=== PATIENT | female | born 2005 | race Caucasian/White ===

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

== ENCOUNTER 2023-12-21 13:29 | Emergency (ER) | payer OTHER, SELFPAY ==
[2023-12-21 13:39] VITALS: BP 112/80; PULSE 91; RESP 14; TEMP 37.1; O2SAT 97; BMI 29.3
--- NOTE | 2023-12-21 13:39 | ED.EAR ---
HPI - Ear Problem General Chief complaint: Ear Problems Stated complaint: diff hearing l ear swelling Time Seen by Provider: 12/21/23 15:04 Source: patient Mode of arrival: ambulatory Limitations: no limitations History of Present Illness ED Provider: melissa LEIVA Narrative: Patient is a 18-year-old female presenting to the emergency department with complaint of left ear pain and swelling despite starting antibiotic treatment for AOM yesterday. Denies fevers. Reports decreased hearing. Denies discharge or drainage from ear. Complaint: ear pain and decreased hearing Location: left ear Duration: constant Severity: severe Relieving factors: nothing Discharge from ear: no Treatment prior to arrival: other Related Data Previous Rx's ?Medication ?Instructions ?Recorded ciprofloxacin 0.3 %-dexamethasone 4 drp otic (ears) BID 7 days #7.5 12/21/23 0.1 % ear drops,suspension mL Allergies Allergy/AdvReac Type Severity Reaction Status Date / Time No Known Allergies Allergy Verified 12/21/23 13:41 [No Known Allergies*] Review of Systems Review of Systems: As per HPI. Yes all other systems are reviewed and are negative Constitutional: Constitutional: Reports as per HPI [facility] Past Medical History Medical History ADHD Depression Social History Social History Alcohol intake: current Alcohol intake frequency: holidays/special occasions only Patient Tobacco Use Status: Never used Tobacco Substance Use Type: Marijuana Advance Directives: No Advance Directives Information Provided: No Do you have a plan to hurt others: No Plan Physical Exam Vital Signs: Vital Signs: Last Vital Signs Temp 98.8 F 12/21/23 13:39 Pulse 91 12/21/23 13:39 Resp 14 12/21/23 13:39 BP 112/80 12/21/23 13:39 Pulse Ox 97 12/21/23 13:39 O2 Del Method Room Air 12/21/23 13:39 BMI result Body Mass Index 29.3 Vital signs have been reviewed and appear to be correct. Blood pressure normal. Heart rate normal. Respiratory rate normal. Temperature normal. Oxygen saturation normal. Const: General: cooperative, healthy appearing and no acute distress Orientation/consciousness: oriented to person, oriented to place, oriented to time and patient oriented x3 Limitations: no limitations HEENT: Head: Yes normocephalic and Yes atraumatic Ears: external ears normal, mastoids normal bilaterally, no periauricular adenopathy, Abnormal EAC present edema on the left and EAC tenderness on the left; no foreign body and no otic discharge and unable to visualize TM on the left General nose exam: Normal external nose present Face and sinus: Yes face symmetric Mouth: oropharynx normal and moist mucous membranes Throat: Yes uvula midline Eyes: Pupils: Equal, round and reactive pupils present Neck: Neck: Yes normal visual inspection and Yes supple Resp: Effort & Inspection: normal respiratory effort and able to speak in complete sentences Auscultation: clear to auscultation bilaterally Cardio: Rate: regular rate Rhythm: regular rhythm Heart sounds: S1 normal heart sound present and S2 normal heart sound present GI: Palpation (GI): Soft to palpation and nontender Auscultation: normoactive bowel sounds : General: Yes no CVA tenderness Back/Spine/Pelvis: Back: no CVA tenderness Skin: General skin exam: elasticity normal and turgor normal Neuro: General: oriented to person, oriented to place, oriented to time, patient oriented x3, moves all extremities, no focal motor deficits and CN's II-XI intact bilaterally Cranial nerves: Yes Equal, round and reactive pupils present Cognition (Neuro): normal cognition Extrem: General: Yes full ROM, Yes no pedal edema and Yes no calf tenderness Psych: Mental Status: mental status grossly normal Affect: normal affect Thought process: Normal thought process present Medical Decision Making Medical Decision Making MDM Narrative: Patient is a 18-year-old female presenting to the emergency department with complaint of left ear pain and swelling despite starting antibiotic treatment for AOM yesterday. On exam patient is awake, A+Ox3, VS WNL, afebrile, normal neurological exam without focal deficits, physical exam findings as above. Given reported symptoms and physical exam findings, initial differential includes otitis externa. Patient already being treated for AOM, do not suspect mastoiditis. Wick placed to left EAC. No antibiotic eardrops available from pharmacy. Prescription sent for ciprodex, and patient instructed on use, advised wick will fall out on its own once swelling improves. Follow up with PCP. Return precautions discussed. Patient verbalized understanding of and agreement with plan. Differential Diagnosis Differential Diagnoses: The differential diagnosis associated with the presentation includes As per MDM. External Record Review External record reviewed: Inpatient record, Office record and Outpatient record Prescription Management I considered prescription management with: Antibiotic Discharge Plan Discharge Clinical Impression: Otitis externa Qualifiers: Laterality: left Patient Disposition: Home, Self-Care Instructions: Otitis Externa (DC) Additional Instructions: You were evaluated in the emergency department today for ear pain. Your evaluation suggests that your pain is due to an ear infection. Please take your prescribed antibiotic drops as directed for the full course of the medication. A wick was placed in your ear today to allow the medication to reach the inside of your ear canal. This should fall out on it's own in the next few days as the swelling decreases. Please follow up with your primary care provider within two days. Return to the emergency department if you experience hearing loss, discharge from your ear, headaches, fevers, recurrent vomiting, or any other concerning symptoms. Prescriptions: New ciprofloxacin-dexamethasone 0.3-0.1 % drops,suspension 4 drp otic (ears) BID 7 Days Qty: 7.5 0RF Rx Instructions: LEFT ear Stand Alone Forms: Work/School Release Print Language: Comoran
[2023-12-21 16:04] VITALS: BP 112/80; PULSE 91; RESP 14; TEMP 37.1; O2SAT 97
== END 2023-12-21 16:04 | disposition home or self-care (01) ==
PROVIDERS: Emergency Provider Emergency Medicine Emergency Medical Services
DX: H60.92 Unspecified otitis externa, left ear (principal)
CPT/HCPCS: 99282; 99283

== ENCOUNTER 2023-12-22 04:17 | Emergency (ER) | payer OTHER, SELFPAY ==
[2023-12-22 04:24] VITALS: BP 123/93; PULSE 102; RESP 20; TEMP 36.8; O2SAT 97; BMI 29.3
--- NOTE | 2023-12-22 05:45 | PC.NURSE ---
pt called RN to room hysterically crying states she feels she cant breathe and is having an asthma attack. lung sounds cta. sats 100% on ra. educated pt to take deep breaths and pt calmed down. made aware pt reporting 10/10 ear pain.
--- NOTE | 2023-12-22 06:16 | ED_ITS ---
HPI - General Adult General Chief complaint: Ear Problems Stated complaint: left air pain Time Seen by Provider: 12/22/23 06:16 History of Present Illness ED Provider: Natanael LEIVA narrative: The patient is a 18-year-old female who has had left ear pain for several days. Two days ago she was diagnosed with otitis media and was started on cephalexin. She had worsening pain and came to the emergency room yesterday and was diagnosed with otitis externa. She was given a wick in the ear and was prescribed Ciprodex drops. The week subsequently fell out and she had worsening pain in return to the emergency room. No fevers. Related Data Previous Rx's ?Medication ?Instructions ?Recorded ciprofloxacin 0.3 %-dexamethasone 4 drp otic (ears) BID 7 days #7.5 12/21/23 0.1 % ear drops,suspension mL amoxicillin 875 mg-potassium 1 tab PO BID #20 tabs 12/22/23 clavulanate 125 mg tablet Allergies Allergy/AdvReac Type Severity Reaction Status Date / Time No Known Allergies Allergy Verified 12/22/23 20:25 [No Known Allergies*] Review of Systems Review of Systems: Yes all other systems are reviewed and are negative [facility] Past Medical History Medical History ADHD Depression Social History Social History Alcohol intake: current Alcohol intake frequency: holidays/special occasions only Patient Tobacco Use Status: Never used Tobacco Substance Use Type: Marijuana Do you have a plan to hurt others: No Plan Physical Exam ED Vital Signs: Vital Signs - 24 hr 12/22/23 04:24 12/22/23 07:09 Temperature 98.3 F 98.3 F Pulse Rate 102 H 102 H Respiratory Rate 20 20 Blood Pressure 123/93 H 123/93 H Pulse Oximetry 97 97 Oxygen Delivery Method Room Air Room Air BMI result Body Mass Index 29.3 Const Other: The patient is awake and alert with a normal mental status. She does not appear toxic. HENMT Other: The patient's left ear shows an edematous and narrowed external auditory meatus. There is also some edema to the arline. Some pain with manipulation of the pinna and the tragus. the tympanic membrane could not be visualized because of the swelling of the ear canal. The right ear and all structures were normal. no tenderness in the region of the left mastoid. She has a tenderness immediately below the ear but no palpable mass. Eyes General: appearance normal, both eyes and all related structures Neck Other: Some tenderness on the left side of the neck without palpable discrete mass or adenopathy. Good range of motion of the neck. Resp Effort & Inspection: normal respiratory effort Auscultation: clear to auscultation bilaterally Cardio Rate: regular rate Rhythm: regular rhythm Heart sounds: S1 normal heart sound present and S2 normal heart sound present Skin General skin exam: no rashes or lesions noted Neuro Other: The patient is awake, alert, with a normal mental status and normal cognition. Her demeanor is nontoxic. face is symmetrical. eye movements normal. Speech normal. Moves extremities normally. Medications Administered Discontinued Medications Generic Name Dose Route Start Last Admin Trade Name Freq PRN Reason Stop Dose Admin Amoxicillin/Clavulanate Potassium 875 mg 12/22/23 06:30 12/22/23 07:00 Amoxicillin/Potassium Clav 875 Mg Tablet PO 12/22/23 06:31 875 mg ONCE ONE Administration Ketorolac Tromethamine 30 mg 12/22/23 06:32 12/22/23 07:00 Ketorolac Tromethamine 30 Mg/Ml Vial IM 12/22/23 06:33 30 mg ONCE ONE Administration Medical Decision Making Medical Decision Making [facility] Narrative: The patient is a 18-year-old female who has had problems with her left ear for a few days. She was seen at an urgent care center and prescribed cephalexin. She was then seen here yesterday and prescribed Ciprodex drops. She has been given an ear wick but then remove the airway because she had not yet had any antibiotic drops to instill. She returns now because she has the Ciprodex drops and thinks she should have the ear wick. I was able to place a wick in the ear without difficulty. I then administered four of the Ciprodex drops in the left ear. Is my impression that the patient should probably be on Augmentin rather than cephalexin for a possible otitis media as well. The patient was therefore started on Augmentin and told to stop the cephalexin. She was given Dr. Adorno's office number for possible follow-up. Discharge Plan Discharge Clinical Impression: Acute otitis externa of left ear Patient Disposition: Home, Self-Care Instructions: Otitis Externa (ED) Additional Instructions: We replaced a wick in your left ear to help get the medicine from the ear drops into the ear. Please continue to use the ear drops, 4 drops twice a day. Next dose this evening. I think it might be better for you to be on a different oral antibiotic (antibiotic by mouth). I would recommend stopping the current cephalexin you has been taking. I have sent a prescription for an antibiotic called amoxicillin/clavulanate (Augmentin) to your pharmacy. This antibiotic should be taken 2 times a day. Next dose this evening. Use ibuprofen and acetaminophen as needed for pain. I have given you the contact number for Dr. Adorno, an Ear, Nose, and Throat doctor. Please contact his office on Saturday and see if you can get a follow up appointment in the office this week. Please also work on getting a primary care doctor. Return to the emergency room if you feel significantly worse. Prescriptions: New amoxicillin-pot clavulanate 875-125 mg tablet 1 tab PO BID Qty: 20 0RF No Action ciprofloxacin-dexamethasone 0.3-0.1 % drops,suspension 4 drp otic (ears) BID 7 Days Qty: 7.5 0RF Rx Instructions: LEFT ear Referrals: Ramon Adorno [Physician] - (Otitis media et externa) Interventions: ED Discharge Assessment Last Done: 12/22/23 07:09 Discharge Date/Time: 12/22/23 07:09 Print Language: Monegasque
[2023-12-22] MEDS: Amoxicillin/Potassium Clav 875 MG TABLET PO (07:00)
[2023-12-22] MEDS: Ketorolac Tromethamine 30 MG/ML VIAL IM (07:00)
[2023-12-22 07:09] VITALS: BP 123/93; PULSE 102; RESP 20; TEMP 36.8; O2SAT 97
== END 2023-12-22 07:09 | disposition home or self-care (01) ==
PROVIDERS: Emergency Provider Emergency Medicine
DX: H60.502 Unspecified acute noninfective otitis externa, left ear (principal); H92.02 Otalgia, left ear
CPT/HCPCS: 96372; 99283; 99284; J1885

== ENCOUNTER 2023-12-22 19:58 | Emergency (ER) | payer OTHER, SELFPAY ==
[2023-12-22 20:24] VITALS: BP 102/69; PULSE 97; RESP 18; TEMP 36.9; O2SAT 97; BMI 29.3
--- NOTE | 2023-12-22 20:37 | ED_ITS ---
HPI - Ear Problem General Chief complaint: Ear Problems Stated complaint: ear pain Source: patient Mode of arrival: ambulatory Limitations: no limitations History of Present Illness HPI Narrative: Patient is a 18-year-old female who presents emergency department for evaluation of pain to her left ear. She was seen at an urgent care recently she was prescribed cephalexin for presumed acute otitis media of the left. She continued to have symptoms which prompted re-evaluation. This is her 3rd visit to this emergency department in the past 24 hours regarding the pain to her left ear. Yesterday evening she was prescribed Ciprodex drops for otitis externa, a wick was placed into her ear and she was instructed on appropriate usage. She states that she was unable to get the drops from the pharmacy right away in the wick fell out of her ear she develop worsening pain which prompted her return earlier this morning. The ear wick was replaced, and she was advised to discontinue the oral Keflex and begin taking Augmentin for possible otitis media as well. She states that since leaving this morning she continues to have pain and she is requesting removal of the wick from her ear. She has not used any OT C analgesics such as Tylenol or ibuprofen. She is inquiring as to whether she can have surgery on the ear to clear the infection. Related Data Previous Rx's ?Medication ?Instructions ?Recorded ciprofloxacin 0.3 %-dexamethasone 4 drp otic (ears) BID 7 days #7.5 12/21/23 0.1 % ear drops,suspension mL amoxicillin 875 mg-potassium 1 tab PO BID #20 tabs 12/22/23 clavulanate 125 mg tablet ibuprofen 100 mg/5 mL oral 600 mg (30 mL) PO Q6-8H PRN fever 12/22/23 suspension or pain #473 mL Allergies Allergy/AdvReac Type Severity Reaction Status Date / Time No Known Allergies Allergy Verified 12/22/23 20:25 [No Known Allergies*] Review of Systems Review of Systems: Yes all other systems are reviewed and are negative PMFSH Past Medical History Attestation statement: The following information was validated with the patient. Source: old records reviewed Medical History Depression ADHD Social History Social History Alcohol intake: current Alcohol intake frequency: holidays/special occasions only Patient Tobacco Use Status: Never used Tobacco Substance Use Type: Marijuana Physical Exam Vital Signs: Vital Signs: Last Vital Signs Temp 98.5 F 12/22/23 20:24 Pulse 97 12/22/23 20:24 Resp 18 12/22/23 20:24 BP 102/69 12/22/23 20:24 Pulse Ox 97 12/22/23 20:24 O2 Del Method Room Air 12/22/23 20:24 BMI result Body Mass Index 29.3 Appearance: Alert.?Oriented to person, place and time. No acute distress.?Normal affect. ENT: Pharynx normal.??External left ear is edematous, appears to have opening of the external auditory canal and edema to arline, no mastoid tenderness erythema or warmth. The wick is intact to the left external ear canal Neck: Normal inspection.? Neck supple.? No adenopathy. No nuchal rigidity. Full range of motion. CVS: Heart sounds normal. Normal heart rate and rhythm.? Pulses normal.?? Respiratory: No respiratory distress.? Lung sounds clear to auscultation bilaterally?? Abdomen: Soft and non-tender. Normoactive bowel sounds. Skin: Skin warm and dry.? Normal skin color.? Neuro: Moves all extremities spontaneously. Sensation intact bilaterally. Ambulates with normal steady gait. Medical Decision Making Medical Decision Making MDM Narrative: Patient is a 18-year-old female who was undergoing treatment for acute otitis externa and presumed otitis media of the left ear as per HPI. At the time of my evaluation she has external swelling, and an ear wick in place. Patient was i nitially requesting removal, she inquires as to what next steps would be if it were removed, inquiring as to whether she may undergo surgery to clear out ear. Advised that this would not be the recommended course of treatment. Given the extent of the externa swelling, I do think that she would benefit from having a wick in place so that the antibiotic drops can be fully absorbed throughout the external canal. I discussed with her the use of the [place] and ibuprofen for analgesic. She has been mastoid tenderness to suggest acute mastoiditis. Advised continued recommendation to follow up closely outpatient with ENT / PCP. At this time no signs of systemic toxicity she is afebrile without tachycardia. No distress. I feel that she is stable for discharge home Differential Diagnosis Differential Diagnoses: The differential diagnosis associated with the presentation includes (See narrative above) External Record Review External record reviewed: Outpatient record Prescription Management I considered prescription management with: Pain Medication (See narrative above) Discharge Plan Discharge Clinical Impression: Acute otitis externa of left ear Patient Disposition: Home, Self-Care Instructions: Otitis Externa (ED) Additional Instructions: You can take ibuprofen 200 mg, 3 tablets (600mg) every 6-8 hours as needed for pain, in addition to Tylenol 500 mg, 2 tablets (1,000mg) every 4-6 hours as needed for pain, but not to exceed 3 doses daily (3,000mg).? As discussed, I recommend that you continue to take oral antibiotic as previously prescribed earlier this morning, use the ear drops as prescribed; 4 drops twice a day, and contact the Ear Nose Throat specialist 1st thing tomorrow morning. You were provided with their contact information from her visit earlier today. Prescriptions: New ibuprofen 100 mg/5 mL suspension 600 mg PO Q6-8H PRN (Reason: fever or pain) Qty: 473 0RF No Action amoxicillin-pot clavulanate 875-125 mg tablet 1 tab PO BID Qty: 20 0RF ciprofloxacin-dexamethasone 0.3-0.1 % drops,suspension 4 drp otic (ears) BID 7 Days Qty: 7.5 0RF Rx Instructions: LEFT ear Referrals: Ramon Adorno [Physician] - Print Language: Croatian
[2023-12-22 20:59] VITALS: BP 102/69; PULSE 97; RESP 18; TEMP 36.9; O2SAT 97
== END 2023-12-22 20:59 | disposition home or self-care (01) ==
PROVIDERS: Emergency Provider Emergency Medicine
DX: H60.502 Unspecified acute noninfective otitis externa, left ear (principal); H92.02 Otalgia, left ear
CPT/HCPCS: 99282

== ENCOUNTER 2023-12-26 16:47 | Emergency (ER) | payer OTHER, SELFPAY ==
--- NOTE | ~2023-12-26 | CT_ITS ---
EXAMINATION: CT mastoid without contrast. CLINICAL INDICATION: Left mastoid tenderness. COMPARISON: None. TECHNIQUE: 0.6 mm thin axial and reformatted sagittal and coronal 0.6 mm thin images of mastoid sinuses were obtained. DLP 251. This CT examination was performed using dose optimization technique as appropriate, variously including the following: Automated exposure control Adjustment of MA and/or KV according to patient size(this includes techniques or standardized protocols for targeted exams where dose is matched to indication/reason for exam; extremities or head. Use of iterative reconstruction techniques. FINDINGS: Right external auditory canal, middle ear and internal auditory canal appears unremarkable. There is soft tissue mass extending throughout the left middle ear and epitympanum suggestive of cholesteatoma. The middle ear ossicles are intact There is mucoperiosteal thickening involving left external auditory canal. The internal auditory canal is symmetrical to the right side without any bony erosive changes. Vein appears unremarkable Mild mucoperiosteal thickening seen left mastoid sinus. No lytic or sclerotic process seen. There is no soft tissue density CT/CT mastoid IMPRESSION: 1. Soft tissue mass extending throughout the left middle ear and epitympanum suggestive of cholesteatoma. 2. There is mucoperiosteal thickening involving left external auditory canal. 3. Mild mucoperiosteal thickening left mastoid sinus. 4. Normal right mastoid sinus, internal, middle and external ear. Electronically signed by: Raghav Martinez MD 12/26/2023 07:41 PM EDT
[2023-12-26 17:51] VITALS: BP 146/68; PULSE 102; RESP 16; TEMP 36.4; O2SAT 97; BMI 29.3
--- NOTE | 2023-12-26 17:53 | ED.EAR ---
HPI - Ear Problem General Chief complaint: Ear Problems Stated complaint: left ear pain Time Seen by Provider: 12/26/23 21:43 Source: patient Mode of arrival: ambulatory Limitations: no limitations History of Present Illness ED Provider: Iban Hahn PA-C HPI Narrative: 18 yold female with pmh of recurrent ear infections presents to the ED for left ear pain, loss of hearing, and ear infection. This is patient's 4th visit for issue. patient was sent to the ED to have CT scan of left ear. Patient denies any recent trauma to ear. Related Data Previous Rx's ?Medication ?Instructions ?Recorded ciprofloxacin 0.3 %-dexamethasone 4 drp otic (ears) BID 7 days #7.5 12/21/23 0.1 % ear drops,suspension mL amoxicillin 875 mg-potassium 1 tab PO BID #20 tabs 12/22/23 clavulanate 125 mg tablet ibuprofen 100 mg/5 mL oral 600 mg (30 mL) PO Q6-8H PRN fever 12/22/23 suspension or pain #473 mL ketorolac 10 mg tablet 10 mg PO Q6H PRN pain 5 days #20 12/26/23 tabs levofloxacin 750 mg tablet 750 mg PO DAILY 10 days #10 tabs 12/26/23 prednisone 20 mg tablet 40 mg (2 x 20 mg) PO DAILY 5 days 12/26/23 #10 tabs Allergies Allergy/AdvReac Type Severity Reaction Status Date / Time No Known Allergies Allergy Verified 12/26/23 17:52 [No Known Allergies*] Review of Systems Review of Systems: left ear pain Yes all other systems are reviewed and are negative PMFSH Past Medical History Medical History Depression ADHD Social History Social History Alcohol intake: current Alcohol intake frequency: holidays/special occasions only Patient Tobacco Use Status: Never used Tobacco Substance Use Type: Marijuana Advance Directives: No Advance Directives Information Provided: No Do you have a plan to hurt others: No Plan Physical Exam Vital Signs: Vital Signs: Last Vital Signs Temp 98.6 F 12/26/23 23:37 Pulse 100 12/26/23 23:37 Resp 16 12/26/23 23:37 BP 116/80 12/26/23 23:37 Pulse Ox 99 12/26/23 23:37 O2 Del Method Room Air 12/26/23 23:37 BMI result Body Mass Index 29.3 Const: General: cooperative, healthy appearing, comfortable, no acute distress, well developed, alert, awake and Physically active Orientation/consciousness: patient oriented x3 HEENT: Other: left ear Head: Yes normal to inspection, Yes No palpable skull fracture present, Yes normocephalic and Yes atraumatic Throat: Yes posterior oropharynx normal, Yes tonsils normal and Yes uvula midline Eyes: General: appearance normal, both eyes and all related structures Neck: Neck: Yes normal visual inspection, Yes full ROM, Yes no lymphadenopathy, Yes no meningeal signs, Yes trachea midline, Yes supple, No anterior neck swelling and No tender Chest: Chest palpation & inspection: normal inspection of the chest and normal palpation of entire chest wall Resp: Effort & Inspection: normal respiratory effort and able to speak in complete sentences Auscultation: clear to auscultation bilaterally Cardio: Jugular venous distension: no JVD Heart sounds: S1 normal heart sound present and S2 normal heart sound present GI: Inspection: Yes normal to inspection Palpation (GI): Soft to palpation, not firm, nontender, no guarding and not rigid : General: No CVA tenderness and Yes no CVA tenderness Back/Spine/Pelvis: Back: no CVA tenderness, No CVA tenderness and No back tenderness Skin: General skin exam: no rashes or lesions noted, elasticity normal and turgor normal Neuro: General: patient oriented x3, gait normal, tone normal, moves all extremities, Normal light touch and pain sensation, no meningeal signs, no focal motor deficits, CN's II-XI intact bilaterally and normal sensation to monofilament Extrem: General: Yes normal to inspection, Yes full ROM and Yes capillary refill normal Psych: Appearance: grossly normal, well kempt and not disheveled Course Course Course Narrative: This is a Rapid Medical Examination (RME) performed by Renee Morales PA-C in triage. Full HPI, ROS, assessment and treatment plan per primary provider in the Main ED. 18 yo female presenting for the 4th time for left ear pain, swelling, decreased hearing despite using multiple courses of antbiotics orally and topically. mat linker told her to come here because she had worsening symptoms after using the last course of drops and pain in the post auricular area. stopped amoxicillin last night because it was not working. exam with significant left EAC swelling, drainage. left sided mastoid tenderness without associated redness. Plan: CT mastoid Medications Administered Discontinued Medications Generic Name Dose Route Start Last Admin Trade Name Hill PRN Reason Stop Dose Admin Ketorolac Tromethamine 30 mg 12/26/23 22:33 12/26/23 22:51 Ketorolac Tromethamine 30 Mg/Ml Vial IM 12/26/23 22:34 30 mg ONCE ONE Administration Medical Decision Making Medical Decision Making MDM Narrative: 18-year-old female with 4th presentation of left ear infection. Patient has had weeks placed twice into left ear and she refused another week. Patient states initially she was on Keflex and was discontinued and now presently on amoxicillin. CT scan of left ear negative for mastoiditis but does shows cholesteatoma. Patient is aware of this. Patient was informed that cholesterol, increase his risk of recurrent infection and will need a surgical intervention as an outpatient. Patient informed to follow-up with ENT. Case discussed with Dr. Briggs who states patietn should stop taking amoxiccilin and should be discharged with levaquin and prednisone. Patient needs to follow-up with ENT. Patient explained worrisome signs and informed to return to the ED immediately. Differential Diagnosis Differential Diagnoses: The differential diagnosis associated with the presentation includes (Mastoiditis, cellulitis, otitis media, otitis externa) Admission/Observation Consideration of admission/observation: Escalation of care including admission/observation considered Independent Interpretation I performed an independent interpretation of an: Ultrasound Radiology Impression Discussion of test interpretation with radiology: I have reviewed the radiologist's reading. Independent Historian Clinical information obtained from an independent historian. History obtained from or confirmed by: Other (patient) External Record Review External record reviewed: Other (prior visits) Prescription Management I considered prescription management with: Pain Medication and Antibiotic Discharge Plan Discharge Clinical Impression: Otitis externa, Cholesteatoma Patient Disposition: Home, Self-Care Instructions: Otitis Externa (ED) Additional Instructions: Recommend follow-up with ENT specialist [facility], [facility], [phone]. [address] [address], [place] [address]. You can also follow-up with our own ENT. Stop taking amoxicillin. You will be prescribed Levaquin and prednisone. Return to the ED immediately for worsening pain, fever, chills, swelling, worsening redness, nausea, vomiting, or any other concerning symptoms. Do not take Motrin, naproxen, Aleve, or any other NSAIDs with ketorolac. CT/CT mastoid IMPRESSION: 1. Soft tissue mass extending throughout the left middle ear and epitympanum suggestive of cholesteatoma. 2. There is mucoperiosteal thickening involving left external auditory canal. 3. Mild mucoperiosteal thickening left mastoid sinus. 4. Normal right mastoid sinus, internal, middle and external ear. Electronically signed by: Raghav Martinez MD 12/26/2023 07:41 PM EDT RP Prescriptions: New ketorolac 10 mg tablet 10 mg PO Q6H PRN (Reason: pain) 5 Days Qty: 20 0RF Rx Instructions: Patient received Toradol 30 IM in the ED prednisone 20 mg tablet 40 mg PO DAILY 5 Days Qty: 10 0RF levofloxacin 750 mg tablet 750 mg PO DAILY 10 Days Qty: 10 0RF No Action amoxicillin-pot clavulanate 875-125 mg tablet 1 tab PO BID Qty: 20 0RF ciprofloxacin-dexamethasone 0.3-0.1 % drops,suspension 4 drp otic (ears) BID 7 Days Qty: 7.5 0RF Rx Instructions: LEFT ear ibuprofen 100 mg/5 mL suspension 600 mg PO Q6-8H PRN (Reason: fever or pain) Qty: 473 0RF Referrals: Ramon Adorno [Physician] - (Chronic ear infection, cholesteatoma) Stand Alone Forms: Work/School Release Interventions: ED Discharge Assessment Last Done: 12/26/23 23:37 Discharge Date/Time: 12/26/23 23:38 Print Language: Kyrgyz
[2023-12-26 22:23] VITALS: BP 116/80; PULSE 100; RESP 16; TEMP 37; O2SAT 99
[2023-12-26] MEDS: Ketorolac Tromethamine 30 MG/ML VIAL IM (22:51)
[2023-12-26 23:37] VITALS: BP 116/80; PULSE 100; RESP 16; TEMP 37; O2SAT 99
== END 2023-12-26 23:38 | disposition home or self-care (01) ==
PROVIDERS: Emergency Provider Emergency Medicine
DX: H60.92 Unspecified otitis externa, left ear (principal); H91.92 Unspecified hearing loss, left ear; H71.92 Unspecified cholesteatoma, left ear
CPT/HCPCS: 70481; 96372; 99283; 99284; J1885

== ENCOUNTER 2024-02-10 18:53 | Emergency (ER) | payer OTHER, SELFPAY ==
[2024-02-10 19:18] VITALS: BP 133/72; PULSE 80; RESP 16; TEMP 36.5; O2SAT 97; BMI 26.3
--- NOTE | 2024-02-10 19:25 | ED_ITS ---
HPI - General Adult General Chief complaint: Ear Problems Stated complaint: left ear pain,swelling Time Seen by Provider: 02/10/24 19:23 Source: patient Mode of arrival: ambulatory Limitations: no limitations History of Present Illness ED Provider: Hal Allen HPI narrative: 18 yold female with pmh of choleastoma and recurrent left ear infections. Presents ED now for left ear pain. Patient has follow-up with ENT as with last ear infection where ruptured and has scheduled surgery in February. Related Data Previous Rx's ?Medication ?Instructions ?Recorded ciprofloxacin 0.3 %-dexamethasone 4 drp otic (ears) BID 7 days #7.5 12/21/23 0.1 % ear drops,suspension mL amoxicillin 875 mg-potassium 1 tab PO BID #20 tabs 12/22/23 clavulanate 125 mg tablet ibuprofen 100 mg/5 mL oral 600 mg (30 mL) PO Q6-8H PRN fever 12/22/23 suspension or pain #473 mL ketorolac 10 mg tablet 10 mg PO Q6H PRN pain 5 days #20 12/26/23 tabs levofloxacin 750 mg tablet 750 mg PO DAILY 10 days #10 tabs 12/26/23 prednisone 20 mg tablet 40 mg (2 x 20 mg) PO DAILY 5 days 12/26/23 #10 tabs amoxicillin 875 mg-potassium 1 tab PO Q12H 7 days #14 tabs 02/10/24 clavulanate 125 mg tablet naproxen 500 mg tablet 500 mg PO BID PRN pain 7 days #14 02/10/24 tabs Allergies Allergy/AdvReac Type Severity Reaction Status Date / Time No Known Allergies Allergy Verified 02/10/24 19:23 [No Known Allergies*] Review of Systems Review of Systems: Left ear infection Yes all other systems are reviewed and are negative [facility] Past Medical History Medical History Depression ADHD Social History Social History Alcohol intake: current Alcohol intake frequency: holidays/special occasions only Patient Tobacco Use Status: Never used Tobacco Substance Use Type: Marijuana Advance Directives: No Advance Directives Information Provided: Yes Physical Exam ED Vital Signs: Vital Signs - 24 hr 02/10/24 19:18 02/10/24 19:41 Temperature 97.7 F 97.7 F Pulse Rate 80 80 Respiratory Rate 16 16 Blood Pressure 133/72 133/72 Pulse Oximetry 97 97 Oxygen Delivery Method Room Air Room Air BMI result Body Mass Index 26.3 Const General: cooperative, healthy appearing, comfortable, no acute distress, well developed, alert, awake and Physically active Orientation/consciousness: patient oriented x3 [facility] Head: Yes normal to inspection, Yes No palpable skull fracture present, Yes normocephalic and Yes atraumatic Ears: hearing grossly normal bilaterally, external ears normal, TM normal on the right, EAC's normal, mastoids normal, no periauricular adenopathy and TM abnormal erythematous on the left Throat: Yes posterior oropharynx normal, Yes tonsils normal and Yes uvula midline Eyes General: appearance normal, both eyes and all related structures Neck Neck: Yes normal visual inspection, Yes full ROM, Yes no lymphadenopathy, Yes no meningeal signs, Yes trachea midline, Yes supple, No anterior neck swelling and No tender Chest Chest palpation & inspection: normal inspection of the chest and normal palpation of entire chest wall Resp Effort & Inspection: normal respiratory effort and able to speak in complete sentences Auscultation: clear to auscultation bilaterally Cardio Jugular venous distension: no JVD Heart sounds: S1 normal heart sound present and S2 normal heart sound present GI Inspection: Yes normal to inspection Palpation (GI): Soft to palpation, not firm, nontender, no guarding and not rigid General: Yes no CVA tenderness Back/Spine/Pelvis Back: no CVA tenderness and No back tenderness Skin General skin exam: no rashes or lesions noted, elasticity normal and turgor normal Neuro General: patient oriented x3, gait normal, tone normal, moves all extremities, Normal light touch and pain sensation, no meningeal signs, no focal motor deficits, CN's II-XI intact bilaterally and normal sensation to monofilament Extrem General: Yes normal to inspection, Yes full ROM and Yes capillary refill normal Psych Appearance: grossly normal, well kempt and not disheveled Medical Decision Making Medical Decision Making MDM Narrative: 18-year-old female with recurrent ear infections and known cholesteoma presents to the ED for left ear pain. Patient states a month ago per cholesterol ruptured and had a ear wick placed. Patient follow-up with the ENT specialist at [facility] and they scheduled her for surgery in February. Physical exam negative for any ear canal swelling or swelling of the outer ear. Positive for tympanic membrane erythema will treat as otitis media. Patient has taken amoxicillin in the past with no allergic reaction in the past. Patient explained worrisome sign informed to follow up with primary care provider or ED immeidatley. Negative for signs of osteomyelitis or mastoiditis. Differential Diagnosis Differential Diagnoses: The differential diagnosis associated with the presentation includes (otisi externa, otitis media, abscess, cellulitits, ) Admission/Observation Consideration of admission/observation: Escalation of care including admission/observation considered Independent Historian Clinical information obtained from an independent historian. History obtained from or confirmed by: Other (patient) External Record Review External record reviewed: Other (prior visit) Prescription Management I considered prescription management with: Antibiotic Discharge Plan Discharge Clinical Impression: Otitis media Patient Disposition: Home, Self-Care Instructions: Ear Infection (ED) Additional Instructions: Return to the ED immediately for any ear swelling, redness, severe ear pain, ear discharge, decreased hearing, headache, fever, chills, nausea, vomiting, or any or any other concerning symptoms. Recommend follow-up with your ENT and primary care provider Prescriptions: New amoxicillin-pot clavulanate 875-125 mg tablet 1 tab PO Q12H 7 Days Qty: 14 0RF naproxen 500 mg tablet 500 mg PO BID PRN (Reason: pain) 7 Days Qty: 14 0RF No Action amoxicillin-pot clavulanate 875-125 mg tablet 1 tab PO BID Qty: 20 0RF ketorolac 10 mg tablet 10 mg PO Q6H PRN (Reason: pain) 5 Days Qty: 20 0RF Rx Instructions: Patient received Toradol 30 IM in the ED prednisone 20 mg tablet 40 mg PO DAILY 5 Days Qty: 10 0RF levofloxacin 750 mg tablet 750 mg PO DAILY 10 Days Qty: 10 0RF ciprofloxacin-dexamethasone 0.3-0.1 % drops,suspension 4 drp otic (ears) BID 7 Days Qty: 7.5 0RF Rx Instructions: LEFT ear ibuprofen 100 mg/5 mL suspension 600 mg PO Q6-8H PRN (Reason: fever or pain) Qty: 473 0RF Stand Alone Forms: Work/School Release Interventions: ED Discharge Assessment Last Done: 02/10/24 19:41 Discharge Date/Time: 02/10/24 19:42 Print Language: Omani
[2024-02-10 19:41] VITALS: BP 133/72; PULSE 80; RESP 16; TEMP 36.5; O2SAT 97
--- OUTSIDE RECORDS SUMMARY | 2024-02-14 13:12 | XMS_ITS | Continuity of Care Document ---
Author Organization [facility] ter Address [address] [place] [id number]- Care Team Providers Care Ciso Name Role Phone Amy Galvan MD Primary Care Physician [phone] [facility] Date(s): 12/29/23 - 12/29/[address] [address]- Encounter Diagnosis Otitis externa(Final) - 12/29/23 Cellulitis(Final) - 12/29/23 Discharge Disposition: A-D/C Home Attending Physician: Tushar Mtz DO Admitting Physician: Tushar Mtz DO Referring Physician: Not on Staff, Referring MD Allergies, Adverse Reactions, Alerts No Known Allergies Medications Adderall XR 20 mg oral capsule, extended release 1 capsule = 20 mg, By Mouth, Daily in AM, ADHD contents of capsule mixed with applesauce, 0 Refills, Maintenance, 07/19/14 9:27:55, CR Capsule Start Date: 07/19/14 Status: Ordered Augmentin 875 mg-125 mg oral tablet 1 tablet, By Mouth, Every 12 hours, for 10 days, # 20 tablet, 0 Refills, Acute 01/08/24 17:12:00 EDT, 12/29/23 17:12:00 EDT, Tablet, [facility]/pharmacy #[id number], Partial fill upon patient request if the prescription is for a schedule II opioid drug., 153, cm,... Start Date: 12/29/23 Stop Date: 01/08/24 Status: Ordered clonidine 0.1 mg oral tablet See Instructions, 1.5 tablet , By Mouth , Daily at bedtime, 0 Refills, Maintenance, 07/19/14 9:30:22 Start Date: 07/19/14 Status: Ordered fluoxetine 20 mg/5 ml oral solution 2.5 mL = 10 mg, By Mouth, Daily in AM, given in applesauce, # 120 mL, 0 Refills, Maintenance, 08/26/12 11:32:41 Start Date: 08/26/12 Status: Ordered oxyCODONE 5 mg oral tablet 5 mg, 1, tablet, By Mouth, Every 6 hours, PRN, for 3 days, # 12 tablet, Refills 0, Tot. Refills 0, Acute 01/01/24 17:13:00 EDT, for pain, 12/29/23 17:13:00 EDT, Route to Pharmacy Electronically, [facility]/pharmacy #[id number], Partial fill upon patient request if... Start Date: 12/29/23 Stop Date: 01/01/24 Status: Ordered oxyCODONE 5 mg oral tablet 5 mg, Tablet, By Mouth, Once, STAT, 12/29/23 17:21:00 EDT, Stop date 12/29/23 17:21:00 EDT Start Date: 12/29/23 Stop Date: 12/29/23 Status: Completed Problem List Condition Confirmation Course Effective Dates Status Health St atus Informant Mood disorder Confirmed 08/06/12 Active Vital Signs Most recent to oldest [Reference Range]: 1 2 3 Height 153 cm (12/29/23 2:07 PM) Weight 69.5 kg (12/29/23 2:07 PM) Oxygen Saturation [94-100 %] 98 % (12/29/23 6: PM) 96 % (12/29/23 2:07 PM) 100 % (12/29/23 2:04 PM) Pulse Rate [55-90 bpm] 88 bpm (12/29/23 6:24 PM) 107 bpm *H* (12/29/23 2:07 PM) 100 bpm *H* (12/29/23 2:04 PM) Body Mass Index [18.5-24.99 kg/m2] 29.69 kg/m2 *H* (12/29/23 2:07 PM) Blood Pressure [90-138/55-84 mm Hg] 126/76mm Hg (12/29/23 6:24 PM) 125/76mm Hg (12/29/23 2:07 PM) Respiratory Rate [16-30 br/min] 16 br/min (12/29/23 6:24 PM) 16 br/min (12/29/23 5:24 PM) 18 br/min (12/29/23 2:07 PM) Temperature [96.8-100.4 DegF] 98.4 DegF (12/29/23 6:24 PM) 98.4 DegF (12/29/23 2:07 PM) Mode of Delivery (Oxygen) Room air (12/29/23 6:24 PM) Room air (12/29/23 2:07 PM) Blood pressure sites Arm, left (12/29/23 6:24 PM) Arm, left (12/29/23 2:07 PM) Temperature Route Oral (12/29/23 6:24 PM) Oral (12/29/23 2:07 PM) Dry Weight 69.5 kg (12/29/23 2:07 PM) Weight Obtained Via Patient/family state d (12/29/23 2:07 PM) Dry Weight Obtained Via Patient lift navarro ging scale (12/29/23 2:07 PM) Hospital Progress note * Art Cespedes MD: PERFORM, SIGN, VERIFY, SIGN, MODIFY Event Display: Progress Note Hospital Authored Date: Patient: CAT TAO Age: 18 years Sex: Female : 2005 Associated Diagnoses: None Author: Art Cespedes MD ENT NOTE Hx of OE. Was seen Saturday. Wick came out. Has pain. Interested in surgery. [facility] [place] chol[place]. I discussed no immediate surgery would be done in the acute period. I suggested replacing the wick if the EAC is not patent vs leaving the wick out if the EAC is patent. I would continue drops and Levaquin. Pt has an appointment with ENT tomorrow. ER was goingto check labs and call me back if other concerns. -Art Cespedes MD * Art Cespedes MD: PERFORM Event Display: Progress Note Hospital Authored Date: I discussed the case further with Dr. Mtz. I reviewed a picture. She not only has OE but also has an infected preauricular pit with adjacent cellulitis. I discussed broadening abx coverage to cover OM and skin carlos. She will keep f/u with us tomorrow to debride her EAC which we can better do inthe office and if necessary we can perform a mini I&D of the preauricular area if needed. -Art Cespedes MD Patient Care team information Care Team Personnel Name: Cole TALAMANTES, Amy Cavazos Position: [facility] Physician - Pediatrics Member Role: PCP Address: Address: [address] [facility] [place] [address]- [place] Care Team Related Persons Name: YONATAN ESCOBAR Address: [address] [place] [address] Name: SHANEKA ANTOINE Address: [address] [place] [address]
== END 2024-02-10 19:42 | disposition home or self-care (01) ==
PROVIDERS: Emergency Provider Emergency Medicine Emergency Medical Services
DX: H66.92 Otitis media, unspecified, left ear (principal)
CPT/HCPCS: 99282; 99283

== ENCOUNTER 2024-03-28 23:54 | Emergency (ER) | payer OTHER, SELFPAY ==
--- NOTE | ~2024-03-28 | XR_ITS ---
CLINICAL HISTORY: cough 1 view chest x-ray. Comparison: None Findings: The lungs appear clear. There is no consolidation, effusion, or nodule identified. Cardiomediastinal silhouette is within normal limits. IMPRESSION: No acute cardiopulmonary abnormality. This document has been electronically signed by: Jose M Wood MD on 03/29/2024 00:54:15
[2024-03-28 23:55] VITALS: BP 107/73; PULSE 95; RESP 16; TEMP 36.8; O2SAT 97; BMI 25.8
[2024-03-29 00:40] LABS: IDNOW Serial# 58CA691E; Strep A Nucleic Acid Negative (Negative)
[2024-03-29 01:13] LABS: Influenza A PCR NEGATIVE (Negative); Influenza B PCR NEGATIVE (Negative); Resp Syncy Virus RNA Qual PCR NEGATIVE (Negative); SARS COV2 PCR INHOUSE NEGATIVE (Negative)
[2024-03-29 03:38] LABS: Color Urine Straw; Glucose Urine UA Negative (Negative); Leukocyte Esterase Urine Trace (Negative); Nitrite Urine Negative (Negative); PH 5.5 (5.0-9.0); Specific Gravity - Urine 1.015 (1.005-1.025); UMIC TRIGGER UACC YES; Urine Blood Negative (Negative); Urine Ketones Negative (Negative); Urine Protein Negative (Neg-Trace)
[2024-03-29 03:39] LABS: Appearance Urine Clear
[2024-03-29 03:40] LABS: Bacteria Urine Trace (None Seen); Hyaline Casts Urine 0-2 /LPF (0-2); RBC Urine 0-2 /HPF (0-2); WBC Urine 0-5 /HPF (0-5)
--- NOTE | 2024-03-29 04:01 | ED_ITS ---
HPI - URI/Sore Throat General Chief Complaint: Upper Respiratory Symptoms Stated Complaint: coughing, pink eye? Time Seen by Provider: 03/29/24 03:55 Source: patient Mode of arrival: ambulatory Limitations: no limitations History of Present Illness ED Provider: Dr. Lynn Mae HPI Narrative: Patient comes to the emergency room complaining of cough and sore throat and bilateral eye redness with discharge which has gradually been getting worse for about a week. Patient states that her significant other had the same symptoms, his better now but now she is starting with all the same symptoms. Patient denies shortness of breath, no chest pain. Complaining of fatigue and generalized malaise. Related Data Previous Rx's ?Medication ?Instructions ?Recorded ciprofloxacin 0.3 %-dexamethasone 4 drp otic (ears) BID 7 days #7.5 12/21/23 0.1 % ear drops,suspension mL amoxicillin 875 mg-potassium 1 tab PO BID #20 tabs 12/22/23 clavulanate 125 mg tablet ibuprofen 100 mg/5 mL oral 600 mg (30 mL) PO Q6-8H PRN fever 12/22/23 suspension or pain #473 mL ketorolac 10 mg tablet 10 mg PO Q6H PRN pain 5 days #20 12/26/23 tabs levofloxacin 750 mg tablet 750 mg PO DAILY 10 days #10 tabs 12/26/23 prednisone 20 mg tablet 40 mg (2 x 20 mg) PO DAILY 5 days 12/26/23 #10 tabs amoxicillin 875 mg-potassium 1 tab PO Q12H 7 days #14 tabs 02/10/24 clavulanate 125 mg tablet naproxen 500 mg tablet 500 mg PO BID PRN pain 7 days #14 02/10/24 tabs benzonatate 100 mg capsule 100 mg PO TID PRN cough #12 caps 03/29/24 erythromycin 5 mg/gram (0.5 %) eye 0.5 inch ophthalmic (eye) BID #3.5 03/29/24 ointment grams Allergies Allergy/AdvReac Type Severity Reaction Status Date / Time No Known Allergies Allergy Verified 03/28/24 23:57 [No Known Allergies*] PMFSH Past Medical History Medical History Depression ADHD Social History Social History Alcohol intake: current Alcohol intake frequency: holidays/special occasions only Patient Tobacco Use Status: Never used Tobacco Substance Use Type: Marijuana Advance Directives: No Do you have a plan to hurt others: No Plan Physical Exam Vital Signs: Vital Signs: Last Vital Signs Temp 98.3 F 03/28/24 23:55 Pulse 95 03/28/24 23:55 Resp 16 03/28/24 23:55 BP 107/73 03/28/24 23:55 Pulse Ox 97 03/28/24 23:55 O2 Del Method Room Air 03/28/24 23:55 BMI result Body Mass Index 25.8 Const: Other: Appearance: Alert. Oriented X3. No acute distress. Eyes: Pupils equal, round and reactive to light. Crusty bilateral as, erythematous, no surrounding cellulitis ENT: Pharynx normal. Neck: Normal inspection. Neck supple. No lymph nodes noted. No crepitus CVS: Normal heart rate and rhythm. Pulses normal. Normal S1 and S2 Respiratory: No respiratory distress. Breath sounds normal. No Wheezing. No rales Abdomen: Soft and nontender. No rigidity. No distention. Skin: Skin warm and dry. Normal skin color. Normal skin turgor. Extremities: No lower extremity edema. No Lacerations. No Rash Neuro: Oriented X 3. No motor deficit. No sensory deficit. Moving all extremities. No slurred speech. CN 2 through 12 grossly intact Psych: calm, cooperative, normal affect Medications Administered Discontinued Medications Generic Name Dose Route Start Last Admin Trade Name Freq PRN Reason Stop Dose Admin Benzonatate 100 mg 03/29/24 04:01 03/29/24 04:11 Benzonatate 100 Mg Capsule PO 03/29/24 04:02 100 mg ONCE ONE Administration Dexamethasone Sodium Phosphate 6 mg 03/29/24 04:01 03/29/24 04:11 Dexamethasone Sod Phosphate 4 Mg/Ml Vial IVPUSH 03/29/24 04:02 6 mg ONCE ONE Administration Lidocaine HCl 15 ml 03/29/24 04:01 03/29/24 04:11 Lidocaine Hcl Viscous 2 % 15 Ml Solution MUCOUS MEM 03/29/24 04:02 15 ml ONCE ONE Administration Medical Decision Making Lab Data Labs: Lab Results 03/29/24 03/29/24 Range/Units 00:24 03:22 Urine Color Straw Urine Appearance Clear Urine pH 5.5 (5.0-9.0) Ur Specific [place] 1.015 (1.005-1.025) Urine Protein Negative (Neg-Trace) mg/dL Urine Glucose (UA) Negative (Negative) mg/dL Urine Ketones Negative (Negative) mg/dL Urine Blood Negative (Negative) Urine Nitrite Negative (Negative) Ur Leukocyte Esterase Trace H (Negative) Urine RBC 0-2 (0-2) /HPF Urine WBC 0-5 (0-5) /HPF Ur Squamous Epith Cells 3-5 (0-2) /HPF Urine Bacteria Trace (None Seen) Hyaline Casts 0-2 (0-2) /LPF Influenza Type A (PCR) NEGATIVE (Negative) Influenza Type B (PCR) NEGATIVE (Negative) RSV RNA Qual (PCR) NEGATIVE (Negative) SARS-CoV-2 RNA (RT-PCR) NEGATIVE (Negative) S. pyogenes GrpA HARLEY Negative (Negative) Discharge Plan Discharge Clinical Impression: Upper respiratory infection, Bronchitis Patient Disposition: Home, Self-Care Instructions: Acute Bronchitis (ED) Additional Instructions: Please follow-up with your primary care physician tomorrow. If you have any worsening or new symptoms, please return to the emergency room or call 911 Prescriptions: New benzonatate 100 mg capsule 100 mg PO TID PRN (Reason: cough) Qty: 12 0RF erythromycin 5 mg/gram (0.5 %) ointment 0.5 inch ophthalmic (eye) BID Qty: 3.5 0RF No Action amoxicillin-pot clavulanate 875-125 mg tablet 1 tab PO BID Qty: 20 0RF ketorolac 10 mg tablet 10 mg PO Q6H PRN (Reason: pain) 5 Days Qty: 20 0RF Rx Instructions: Patient received Toradol 30 IM in the ED prednisone 20 mg tablet 40 mg PO DAILY 5 Days Qty: 10 0RF levofloxacin 750 mg tablet 750 mg PO DAILY 10 Days Qty: 10 0RF amoxicillin-pot clavulanate 875-125 mg tablet 1 tab PO Q12H 7 Days Qty: 14 0RF naproxen 500 mg tablet 500 mg PO BID PRN (Reason: pain) 7 Days Qty: 14 0RF ciprofloxacin-dexamethasone 0.3-0.1 % drops,suspension 4 drp otic (ears) BID 7 Days Qty: 7.5 0RF Rx Instructions: LEFT ear ibuprofen 100 mg/5 mL suspension 600 mg PO Q6-8H PRN (Reason: fever or pain) Qty: 473 0RF Stand Alone Forms: Work/School Release Print Language: Faroese
[2024-03-29] MEDS: Lidocaine HCl Viscous 2 % 15 ML SOLUTION MUCOUS MEM (04:11)
[2024-03-29] MEDS: dexAMETHasone sod phosphate 4 MG/ML VIAL 6 MG IVPUSH (04:11)
[2024-03-29] MEDS: Benzonatate 100 MG CAPSULE PO (04:11)
[2024-03-29 05:35] VITALS: BP 110/65; PULSE 90; RESP 14; TEMP 36.7; O2SAT 97
[2024-03-29 05:36] VITALS: BP 110/65; PULSE 90; RESP 14; TEMP 36.7; O2SAT 97
== END 2024-03-29 05:37 | disposition home or self-care (01) ==
PROVIDERS: Emergency Provider Emergency Medicine
DX: J06.9 Acute upper respiratory infection, unspecified (principal); J40 Bronchitis, not specified as acute or chronic; R05.9 Cough, unspecified; Z03.818 Encounter for observation for suspected exposure to other biological agents ruled out
CPT/HCPCS: 0241U; 71045; 81001; 87651; 96374; 99283; 99284; J1100

== ENCOUNTER → 2024-03-28 23:59 | Outpatient (BNV) | payer OTHER, SELFPAY | PROVIDERS: Visit Provider Radiology Diagnostic Radiology | DX: R05.9 Cough, unspecified (principal) | CPT/HCPCS: 71045 ==

== ENCOUNTER 2024-06-02 03:22 | Emergency (ER) | payer OTHER, SELFPAY ==
--- NOTE | ~2024-06-02 | CT_ITS ---
CLINICAL HISTORY: left flank pain, R O obstructive uropathy. Exam: CT abdomen and pelvis without intravenous contrast. Comparison: September 08, 2022. Findings: CT abdomen: Lung bases are clear. No acute bony lesions. Limbus vertebrae of the anterosuperior corner of the T12 vertebral body is evident. There is generalized edema within the left kidney. 1 mm calculus within the interpolar region of the left kidney. There is left perinephric stranding. Minor prominence of the left renal collecting system and left ureter. No stones identified within the left ureter. No right renal or ureteral calculi. No right hydronephrosis. Unenhanced liver, spleen, pancreas, gallbladder, and adrenal glands are unremarkable. Large amount of ingested contents within the stomach. No dilated small bowel. CT pelvis: No bladder calculi. Mild concentric wall thickening of the urinary bladder. No colonic wall thickening or pericolonic inflammatory stranding. No findings of appendicitis. Small amount of free fluid within the posterior cul-de-sac. No free air. Impression: Findings suggest left renal edema with minimal to mild left hydronephrosis and left hydroureter. There is a small stone within the left kidney but no left ureteral calculus identified. Therefore, this may be related to recent passage of a calculus or ascending urinary tract infection. This document has been electronically signed by: Liam Espinal MD on 06/02/2024 07:28:44
[2024-06-02 03:32] VITALS: BP 112/67; PULSE 96; RESP 17; TEMP 36.9; O2SAT 98; BMI 31.1
[2024-06-02 04:39] LABS: Basophils Absolute Auto 0.1 X10*3/uL (0.0-0.2); Basophils Percent Auto 0.5 % (0-2); Eosinophils Absolute Auto 0.2 X10*3/uL (0.0-0.4); Eosinophils Percent Auto 1.5 % (0-4); Hematocrit 38.7 % (37.0-47.0); Hemoglobin 13.4 g/dl (12.0-16.0); Imm Gran Abs Auto 0.02 X10*3/uL (0.00-0.03); Imm Gran Pct Auto 0.2 % (0.0-0.4); Lymphocytes Absolute Auto 2.5 X10*3/uL (1.2-4.9); Lymphocytes Percent Auto 22.2 % (20-40); MANUAL DIFF FLAG NO; Mean Corpuscular HGB Conc 34.6 g/dl (31.0-35.0); Mean Corpuscular Hemoglobin 29.5 pg (27.0-33.0); Mean Corpuscular Volume 85.2 fL (80.0-98.0); Mean Platelet Volume 9.9 fL (9.4-12.3); Monocytes Absolute Auto 0.6 X10*3/uL (0.1-1.2); Monocytes Percent Auto 5.6 % (2-11); Neutrophils Absolute Auto 7.9 x10*3/uL (2.0-8.3); Platelet Count 250 X10*3/uL (160-400); Red Blood Count 4.54 X10*6/uL (4.20-5.50); Red Cell Distribution Width 13.3 % (11.0-16.0); White Blood Count 11.2 X10*3/uL (4.8-10.8)
[2024-06-02 04:54] LABS: Alanine Aminotransferase 15 U/L (0-31); Albumin Level 4.4 g/dL (3.5-5.0); Alkaline Phosphatase 89 U/L (39-117); Anion Gap 10 (12-20); Aspartate Amino Transferase 16 U/L (5-31); Bilirubin Total 0.5 mg/dL (0.0-1.0); Blood Urea Nitrogen 10 mg/dL (9-16); Calcium 9.2 mg/dL (8.4-10.2); Carbon Dioxide 23 mmol/L (22-29); Chloride 110 mmol/L (96-108); Creatinine Clr Calc Pharmacy 112.8; Estimated Glomerular Filt Rate > 60; Glucose Random 87 mg/dL (60-115); Lipase 19 U/L (8-78); Potassium 3.9 mmol/L (3.3-5.1); Sodium 139 mmol/L (135-145); Total Protein 8.1 g/dL (6.5-8.0)
--- NOTE | 2024-06-02 04:55 | ED_ITS ---
HPI - Female Genitourinary General Chief complaint: Urogenital-Female Stated complaint: kidney stones Time Seen by Provider: 06/02/24 04:50 Source: patient Mode of arrival: ambulatory Limitations: no limitations History of Present Illness ED Provider: DR. Kaufman HPI Narrative: 19-year-old female came in for evaluation of left flank pain x4 days, patient had history of kidney stones and kidney infections in the past, report frequency urination, and dark/ bloody urine, no dysuria. Pain is associated with nausea and dry heaving no vomiting, no fever, no chills, no history of intra-abdominal surgery, last bowel movement was normal with no diarrhea, no sick contacts. Sexually active, declined chance of being , no vaginal discharge Or vaginal bleeding. Related Data Previous Rx's ?Medication ?Instructions ?Recorded ciprofloxacin 0.3 %-dexamethasone 4 drp otic (ears) BID 7 days #7.5 12/21/23 0.1 % ear drops,suspension mL amoxicillin 875 mg-potassium 1 tab PO BID #20 tabs 12/22/23 clavulanate 125 mg tablet ibuprofen 100 mg/5 mL oral 600 mg (30 mL) PO Q6-8H PRN fever 12/22/23 suspension or pain #473 mL ketorolac 10 mg tablet 10 mg PO Q6H PRN pain 5 days #20 12/26/23 tabs levofloxacin 750 mg tablet 750 mg PO DAILY 10 days #10 tabs 12/26/23 prednisone 20 mg tablet 40 mg (2 x 20 mg) PO DAILY 5 days 12/26/23 #10 tabs amoxicillin 875 mg-potassium 1 tab PO Q12H 7 days #14 tabs 02/10/24 clavulanate 125 mg tablet naproxen 500 mg tablet 500 mg PO BID PRN pain 7 days #14 02/10/24 tabs benzonatate 100 mg capsule 100 mg PO TID PRN cough #12 caps 03/29/24 erythromycin 5 mg/gram (0.5 %) eye 0.5 inch ophthalmic (eye) BID #3.5 03/29/24 ointment grams cefuroxime axetil 500 mg tablet 500 mg PO BID #20 tabs 06/02/24 phenazopyridine 200 mg tablet 200 mg PO TID 6 doses #6 tabs 06/02/24 (Pyridium) Allergies Allergy/AdvReac Type Severity Reaction Status Date / Time No Known Allergies Allergy Verified 06/02/24 03:38 [No Known Allergies*] Review of Systems 2 Review of Systems: All other systems are reviewed and are negative Constitutional: Reports as per HPI and Reports no additional constitutional complaints Eyes: Reports as per HPI and Reports no additional eye complaints Reports system reviewed and no additional complaints, except as documented Cardiovascular: Reports as per HPI and Reports no additional cardiovascular complaints Respiratory: Reports as per HPI and Reports no additional respiratory complaints Gastrointestinal: Reports as per HPI and Reports no additional gastrointestinal complaints Genitourinary: Reports no additional female genitourinary complaints Musculoskeletal: Reports no additional musculoskeletal complaints Skin/Breast: Reports system reviewed and no additional complaints, except as docu Psychiatric: Reports no additional psychiatric complaints Endocrine: Reports no additional endocrine complaints Hematologic/Lymphatic: Reports no additional hematologic/lymphatic complaints Allergic/Immunologic: Reports no additional allergic/immunologic complaints Reports system reviewed and no additional complaints, except as documented and Reports Abnormal speech present PMFSH Past Medical History Medical History Depression ADHD Social History Social History Alcohol intake: current Alcohol intake frequency: holidays/special occasions only Patient Tobacco Use Status: Never used Tobacco Smoked in Last 30 Days: No Use of substances other than those prescribed or required for medical reasons: No Substance Use Type: Marijuana Advance Directives: No Advance Directives Information Provided: Yes Do you have a plan to hurt others: No Plan Patient : No Physical Exam 2 Vital Signs: Vital Signs: Last Vital Signs Temp 98.5 F 06/02/24 03:32 Pulse 84 06/02/24 06:24 Resp 14 06/02/24 06:24 BP 97/53 L 06/02/24 06:24 Pulse Ox 100 06/02/24 06:24 O2 Del Method Room Air 06/02/24 06:24 BMI result Body Mass Index 31.1 Vital signs have been reviewed and appear to be correct. Blood pressure elevated. Heart rate normal. Respiratory rate normal. Temperature normal. Oxygen saturation normal. Appearance: Alert. Oriented X3. No acute distress. Head: Normal external exam. Normocephalic. Atraumatic. No Cornelius signs noted. No raccoon eyes noted Eyes: PERRLA. EOMI. Conjunctiva and sclera normal. Eyelids normal. ENT: TM's Normal. Pharynx normal. Uvula midline. Moist mucous membranes. No trismus noted. No drooling noted. No muffled voice noted. Neck: Normal inspection. Neck supple. FROM. No adenopathy. Thyroid Normal. No meningeal signs. No neck mass noted. CVS: Normal heart rate and rhythm. Heart sound normal. No murmurs noted. Pulses normal throughout. Respiratory: No respiratory distress. Painless inspiration. Breath sounds normal. No wheezes/rales/rhonchi noted. Chest nontender. No accessory muscle usage noted or decreased air movement noted. Abdomen: Soft and nontender. Bowel sounds normal in all 4 quadrants. No distention noted. No organomegaly noted. No visible injury noted. Back: Left CVA tenderness. Full range of motion noted. Skin: Skin warm and dry. Normal skin color. Normal skin turgor. No rashes/lesions/lacerations noted. Extremities: No lower extremity edema. Extremities exhibit normal range of motion. Extremities nontender. Neuro: Oriented X 3. Cranial nerve exam: II-XII are grossly intact No motor deficit. No sensory deficit. Reflexes normal. Course Reevaluation(s) Reevaluation #1: left pyelonephritis. CT abdomen and pelvis to be checked by Dr. Baig. Patient feels much better, no nausea, no vomiting, with improvement of the left flank pain. Otherwise will be discharged on Ceftin. Time: 06:54 Medications Administered Discontinued Medications Generic Name Dose Route Start Last Admin Trade Name Freq PRN Reason Stop Dose Admin Ceftriaxone Sodium 1 gm 06/02/24 05:44 06/02/24 05:58 Ceftriaxone Sodium 1 Gm Vial IVPUSH 06/02/24 05:45 1 gm ONCE ONE Administration Sodium Chloride 1,000 mls @ 999 mls/hr 06/02/24 04:54 06/02/24 05:55 Ns IV 06/02/24 05:54 999 mls/hr .Q1H1M ONE Administration Ketorolac Tromethamine 15 mg 06/02/24 04:54 06/02/24 05:58 Ketorolac Tromethamine 15 Mg/Ml Vial IVPUSH 06/02/24 04:55 15 mg ONCE ONE Administration Medical Decision Making Differential Diagnosis Differential Diagnoses: The differential diagnosis associated with the presentation includes ( left ureteric stone, left pyelonephritis, UTI, colitis, diverticulitis, , leukocytosis, severe anemia, electrolyte derangement.) Admission/Observation Consideration of admission/observation: Escalation of care including admission/observation considered Lab Data MDM Lab Attestation statement: I reviewed the patient's lab results. 06/02/24 04:34 06/02/24 04:34 Labs: Lab Results 06/02/24 06/02/24 Range/Units 04:34 04:50 WBC 11.2 H (4.8-10.8) X10*3/uL RBC 4.54 (4.20-5.50) X10*6/uL Hgb 13.4 (12.0-16.0) g/dl Hct 38.7 (37.0-47.0) % MCV 85.2 (80.0-98.0) fL MCH 29.5 (27.0-33.0) pg MCHC 34.6 (31.0-35.0) g/dl RDW 13.3 (11.0-16.0) % Plt Count 250 (160-400) X10*3/uL MPV 9.9 (9.4-12.3) fL Immature Gran % (Auto) 0.2 (0.0-0.4) % Neut % (Auto) 70.0 (45-73) % Lymph % (Auto) 22.2 (20-40) % Charles % (Auto) 5.6 (2-11) % Eos % (Auto) 1.5 (0-4) % Baso % (Auto) 0.5 (0-2) % Lymph # (Auto) 2.5 (1.2-4.9) X10*3/uL Charles # (Auto) 0.6 (0.1-1.2) X10*3/uL Eos # (Auto) 0.2 (0.0-0.4) X10*3/uL Baso # (Auto) 0.1 (0.0-0.2) X10*3/uL Abs Immat Gran (auto) 0.02 (0.00-0.03) X10*3/uL Absolute Neuts (auto) 7.9 (2.0-8.3) x10*3/uL Absolute Nucleated RBC 0.000 (0.0-0.012) X10*3/uL Nucleated RBC % (auto) 0.0 (0.0-0.2) /100WBC Sodium 139 (135-145) mmol/L Potassium 3.9 (3.3-5.1) mmol/L Chloride 110 H (96-108) mmol/L Carbon Dioxide 23 (22-29) mmol/L Anion Gap 10 L (12-20) BUN 10 (9-16) mg/dL Creatinine 0.70 (0.5-1.4) mg/dL Estim Creat Clear Calc 112.8 Estimated GFR > 60 Random Glucose 87 (60-115) mg/dL Calcium 9.2 (8.4-10.2) mg/dL Total Bilirubin 0.5 (0.0-1.0) mg/dL AST 16 (5-31) U/L ALT 15 (0-31) U/L Alkaline Phosphatase 89 (39-117) U/L Total Protein 8.1 H (6.5-8.0) g/dL Albumin 4.4 (3.5-5.0) g/dL Lipase 19 (8-78) U/L Urine Color Yellow Urine Appearance Cloudy Urine pH 6.5 (5.0-9.0) Ur Specific [place] 1.015 (1.005-1.025) Urine Protein 30 (1+) H (Neg-Trace) mg/dL Urine Glucose (UA) Negative (Negative) mg/dL Urine Ketones Negative (Negative) mg/dL Urine Blood Trace H (Negative) Urine Nitrite Negative (Negative) Ur Leukocyte Esterase Large (3+) H (Negative) Urine RBC 6-10 H (0-2) /HPF Urine WBC >50 H (0-5) /HPF Ur Squamous Epith Cells 6-10 (0-2) /HPF Urine Bacteria 1+ (None Seen) Hyaline Casts 0-2 (0-2) /LPF Urine Test NEGATIVE (NEGATIVE) Independent Interpretation I performed an independent interpretation of an: CT Scan Discharge Plan Discharge Clinical Impression: Pyelonephritis Patient Disposition: Still a Patient Instructions: Kidney Infection (ED) Prescriptions: New cefuroxime axetil 500 mg tablet 500 mg PO BID Qty: 20 0RF phenazopyridine [Pyridium] 200 mg tablet 200 mg PO TID Qty: 6 0RF No Action amoxicillin-pot clavulanate 875-125 mg tablet 1 tab PO BID Qty: 20 0RF ketorolac 10 mg tablet 10 mg PO Q6H PRN (Reason: pain) 5 Days Qty: 20 0RF Rx Instructions: Patient received Toradol 30 IM in the ED prednisone 20 mg tablet 40 mg PO DAILY 5 Days Qty: 10 0RF levofloxacin 750 mg tablet 750 mg PO DAILY 10 Days Qty: 10 0RF amoxicillin-pot clavulanate 875-125 mg tablet 1 tab PO Q12H 7 Days Qty: 14 0RF naproxen 500 mg tablet 500 mg PO BID PRN (Reason: pain) 7 Days Qty: 14 0RF benzonatate 100 mg capsule 100 mg PO TID PRN (Reason: cough) Qty: 12 0RF erythromycin 5 mg/gram (0.5 %) ointment 0.5 inch ophthalmic (eye) BID Qty: 3.5 0RF ciprofloxacin-dexamethasone 0.3-0.1 % drops,suspension 4 drp otic (ears) BID 7 Days Qty: 7.5 0RF Rx Instructions: LEFT ear ibuprofen 100 mg/5 mL suspension 600 mg PO Q6-8H PRN (Reason: fever or pain) Qty: 473 0RF Print Language: Polish
[2024-06-02 04:56] LABS: Appearance Urine Cloudy; Color Urine Yellow; Glucose Urine UA Negative (Negative); Leukocyte Esterase Urine Large (3+) (Negative); Nitrite Urine Negative (Negative); PH 6.5 (5.0-9.0); Specific Gravity - Urine 1.015 (1.005-1.025); UMIC TRIGGER UACC YES; Urine Blood Trace (Negative); Urine Ketones Negative (Negative); Urine Protein 30 (1+) mg/dL (Neg-Trace)
[2024-06-02 04:58] LABS: UPreg QC Valid YES; Urine Pregnancy NEGATIVE (NEGATIVE)
[2024-06-02 05:01] LABS: Bacteria Urine 1+ (None Seen); Hyaline Casts Urine 0-2 /LPF (0-2); UACC Culture Trigger YES; WBC Urine >50 /HPF (0-5)
--- OUTSIDE RECORDS SUMMARY | 2024-06-02 05:46 | XMS_ITS | Encounter Summary ---
Author Organization [facility] Address [address] [place] [phone] Phone Care Team Providers Care Golf Course Mechanic Name Role Phone Amy Galvan MD Primary Care Provider [phone] Encounter Details Date Type Department Care Team (Late st Contact Info) Description 08/05/2012 Documentation [facility] [place] Family Medicine [address] [place] [address] Family Medicine, Physician [facility] [place] [id number] Social History Tobacco Use Types Packs/Day Years Used Date Smoking Tobacco: Never Assessed Comments Unknown Sex and Gender Information Value Date Recorded Sex Assigned at Female 12/25/2019 7:04 PM EDT Legal Sex Female 5:01 PM EDT Gender Identity Female 12/25/2019 7:04 PM EDT Sexual Orientation Bisexual 12/25/2019 7: 04 PM EDT documented as of this encounter Plan of Treatment Not on file documented as of this encounter Visit Diagnoses Not on filedocumented in this encounter Care Teams Golf Course Mechanic Relationship Specialty Start Date End Date Amy Galvan MD [address] [place] [id number] PCP - General Pediatrics 12/11/22 03/31/24 documented as of this encounter
--- OUTSIDE RECORDS SUMMARY | 2024-06-02 05:46 | XMS_ITS | Encounter Summary ---
Author Organization [facility] Address [address] [place] [address] Phone Care Team Providers Care Armored Cable Machine Operator Name Role Phone Amy Galvan MD Primary Care Provider [phone] Encounter Details Date Type Department Care Team (Late st Contact Info) Description 09/14/2016 Documentation [facility] [place] Medicine [address] [place], [place] [phone] Family Medicine, Physician [facility] [place], [place] [phone] Social History Tobacco Use Types Packs/Day Years Used Date Smoking Tobacco: Never Comments:Never smoker Comments Unknown Sex and Gender Information Value [...] on filedocumented in this encounter Care Teams Armored Cable Machine Operator Relationship Specialty Start Date End Date Amy Galvan MD [address] [place] [id number] PCP - General Pediatrics 12/11/22 03/31/24 documented as of this encounter
--- OUTSIDE RECORDS SUMMARY | 2024-06-02 05:46 | XMS_ITS | Encounter Summary ---
Author Organization [facility] Address [address] [place] [phone] Phone Care Team Providers Care Fondant Machine Operator Name Role Phone Aym Galvan MD Primary Care Provider [phone] Encounter Details Date Type Department Care Team (Late st Contact Info) Description 06/19/2016 Documentation [facility] [place] Family Medicine [address] [place] [address] Family Medicine, Physician [facility] [place], [place] [phone] Social History Tobacco Use Types Packs/Day Years [...] on filedocumented in this encounter Care Teams Fondant Machine Operator Relationship Specialty Start Date End Date Amy Galvan MD [address] [place] [id number] PCP - General Pediatrics 12/11/22 03/31/24 documented as of this encounter
--- OUTSIDE RECORDS SUMMARY | 2024-06-02 05:46 | XMS_ITS | Encounter Summary ---
Author Organization [facility] Address [address] [place] [address] Phone Care Team Providers Care Dental Insurance Biller Name Role Phone Amy Galvan MD Primary Care Provider [phone] Encounter Details Date Type Department Care Team (Late st Contact Info) Description 06/14/2011 Documentation [facility] [place] Family Medicine [address] [place] [address] Family Medicine, Physician [facility] [place], [place] [phone] Social History Tobacco Use Types Packs/Day Years [...] on filedocumented in this encounter Care Teams Dental Insurance Biller Relationship Specialty Start Date End Date Amy Galvan MD [address] [place] [id number] PCP - General Pediatrics 12/11/22 03/31/24 documented as of this encounter
--- OUTSIDE RECORDS SUMMARY | 2024-06-02 05:46 | XMS_ITS | Encounter Summary ---
Author Organization [facility] Address [address] [place] [address] Phone Care Team Providers Care Tree Shear Operator Name Role Phone Amy Galvan MD Primary Care Provider [phone] Reason for Visit * Reason Comments Med Refill Encounter Details Date Type Department Care Team (Late st Contact Info) Description 12/08/2022 Refill [facility] [place] [address] [place] [address] Amy Galvan MD [address] [place] [address] Encounter for initial prescription of injectable contraceptive Social History Tobacco Use Types Packs/Day Years Used Date Smoking Tobacco: Never Smokeless Tobacco: Never Comments:Never smoker Alcohol Use Standard Drinks/Week Comments No 0 (1 standard drink = 0.6 oz pur e alcohol) Hunger/Food Answer Date Recorded In the last 12 months, did y ou or your family ever eat less than you felt you should because there wasn't enough money for food? No 02/23/2021 Stable Housing Answer Date Recorded Are you worried that in the next 2 months you may not have stable housing? No 02/23/2021 Transportation Concerns Answer Date Rec orded In the last 12 months, have you or your family ever had to go without healthcare because you didn't have a way to get there? No 02/23/2021 Hazards in Home Answer Date Recorded Think about the place you li ve. Do you have problems with any of the following? Pests (mice or roaches), mold, no/not working smoke detectors, water leaks, no window guards. No 2020 Financing Utilities Answer Date Recorde d In the last 12 months, has t he electric, gas, oil, or water company threatened to shut off your services in your home? No 02/23/2021 Safety at Home Answer Date Recorded Are you or your family worried about feeling saf e in your home? No 02/23/2021 Outside Support Answer Date Recorded Do you feel that you need mo re support from other people or programs to help you care for yourself or your family? No 02/23/2021 Understanding Health Concerns Answer Da te Recorded Do you need help understandi ng your or your child's healthcare needs (diagnosis, medications, plan, etc.)? No 02/23/2021 Financing Health Concerns Answer Date R ecorded In the last 12 months, was t here a time when your child needed to see a doctor or get medications or supplies but could not because of cost? No 02/23/2021 Missing School or Work Answer Date Devyn rded Did you or your child miss s chool or work because of a health problem that could have been avoided? No 02/23/2021 Comments No Sex and Gender Information Value Date Recorded Sex Assigned at Female 12/25/2019 7:04 PM EDT Legal Sex Female 5:01 PM EDT Gender Identity Female 12/25/2019 7:04 PM EDT Sexual Orientation Bisexual 12/25/2019 7: 04 PM EDT documented as of this encounter Miscellaneous Notes * Telephone Encounter - Robert Leal MD - 12/11/2022 1:09 PM EDT Please send to dr. Galvan, I have not seen her in years * Telephone Encounter - Tori Dooley RN - 12/10/2022 10:30 AM EDT Pharm requesting med refill of medroxyprogesterone injection. Pt has upcoming appointment scheduledfor 12/17/22. documented in this encounter Plan of Treatment Not on file documented as of this encounter Visit Diagnoses Diagnosis Encounter for initial prescription of injectable contraceptive documented in this encounter Care Teams Tree Shear Operator Relationship Specialty Start Date End Date Amy Galvan MD [address] [place] [address] PCP - General Pediatrics 12/11/22 03/31/24 documented as of this encounter
--- OUTSIDE RECORDS SUMMARY | 2024-06-02 05:46 | XMS_ITS | Encounter Summary ---
Author Organization [facility] Address [address] [place] [address] Phone Care Team Providers Care Cost Estimator Name Role Phone Amy Galvan MD Primary Care Provider [phone] Encounter Details Date Type Department Care Team (Late st Contact Info) Description 06/19/2016 Documentation [facility] [place] [address] [place] [address] Family Medicine, Physician [facility] [place] [id number] Social History Tobacco Use Types Packs/Day Years [...] on filedocumented in this encounter Care Teams Cost Estimator Relationship Specialty Start Date End Date Amy Galvan MD [address] [place] [address] PCP - General Pediatrics 12/11/22 03/31/24 documented as of this encounter
--- OUTSIDE RECORDS SUMMARY | 2024-06-02 05:46 | XMS_ITS | Encounter Summary ---
Author Organization [facility] Address [address] [place] [address] Phone Care Team Providers Care Developer Designer Name Role Phone Aym Galvan MD Primary Care Provider [phone] Encounter Details Date Type Department Care Team (Late st Contact Info) Description 06/19/2016 Documentation [facility] Family Medicine [address] [place] [address] Family Medicine, Physician [facility] [place], [place] [phone] Social History Tobacco Use Types Packs/Day Years [...] on filedocumented in this encounter Care Teams Developer Designer Relationship Specialty Start Date End Date Amy Galvan MD [address] [place] [address] PCP - General Pediatrics 12/11/22 03/31/24 documented as of this encounter
--- OUTSIDE RECORDS SUMMARY | 2024-06-02 05:46 | XMS_ITS | Encounter Summary ---
Author Organization [facility] Address [address] [place] [address] Phone Care Team Providers Care Coroner Technician Name Role Phone Amy Galvan MD Primary Care Provider [phone] Encounter Details Date Type Department Care Team (Late st Contact Info) Description 09/14/2016 Documentation [facility] [place] Family Medicine [address] [place], [place] [id number] Family Medicine, Physician [facility] [place] [phone] Social History Tobacco Use Types Packs/Day Years [...] on filedocumented in this encounter Care Teams Coroner Technician Relationship Specialty Start Date End Date Amy Galvan MD [address] [place] [address] PCP - General Pediatrics 12/11/22 03/31/24 documented as of this encounter
--- OUTSIDE RECORDS SUMMARY | 2024-06-02 05:46 | XMS_ITS | Encounter Summary ---
Author Organization [facility] Address [address] [place] [address] Phone Care Team Providers Care Professional Healthcare Representative Name Role Phone Amy Galvan MD Primary Care Provider [phone] Encounter Details Date Type Department Care Team (Late st Contact Info) Description 09/14/2016 Documentation [facility] [place] [address] [place], [place] [phone] Family Medicine, Physician [facility] [place], [place] [phone] Social History Tobacco Use Types Packs/Day Years [...] on filedocumented in this encounter Care Teams Professional Healthcare Representative Relationship Specialty Start Date End Date Amy Galvan MD [address] [place] [address] PCP - General Pediatrics 12/11/22 03/31/24 documented as of this encounter
--- OUTSIDE RECORDS SUMMARY | 2024-06-02 05:46 | XMS_ITS | Encounter Summary ---
Author Organization [facility] Address [address] [place] [address] Phone Care Team Providers Care Career Transition Specialist Name Role Phone Amy Galvan MD Primary Care Provider [phone] Encounter Details Date Type Department Care Team (Late st Contact Info) Description 09/14/2016 [place] [facility] [place] [address] [place], [place] [phone] Family Medicine, Physician [facility] [place], [place] [phone] Social History Tobacco Use Types Packs/Day Years [...] on filedocumented in this encounter Care Teams Career Transition Specialist Relationship Specialty Start Date End Date Amy Galvan MD [address] [place] [address] PCP - General Pediatrics 12/11/22 03/31/24 documented as of this encounter
--- OUTSIDE RECORDS SUMMARY | 2024-06-02 05:46 | XMS_ITS | Encounter Summary ---
Author Organization [facility] Address [address] [place] [address] Phone Care Team Providers Care Shrink Pit Supervisor Name Role Phone Amy Galvan MD Primary Care Provider [phone] Encounter Details Date Type Department Care Team (Late st Contact Info) Description 06/19/2016 Documentation [facility] [place] [address] [place] [address] Family Medicine, Physician [facility] [place], [place] [phone] Social History Tobacco Use Types Packs/Day Years [...] on filedocumented in this encounter Care Teams Shrink Pit Supervisor Relationship Specialty Start Date End Date Amy Galvan MD [address] [place] [address] PCP - General Pediatrics 12/11/22 03/31/24 documented as of this encounter
--- OUTSIDE RECORDS SUMMARY | 2024-06-02 05:46 | XMS_ITS | Encounter Summary ---
Author Organization [facility] Address [address] [place] [address] Phone Care Team Providers Care Vp Hr Diversity Name Role Phone Amy Galvan MD Primary Care Provider [phone] Encounter Details Date Type Department Care Team (Late st Contact Info) Description 06/19/2016 [place] [facility] [place] [address] [place] [address] Family Medicine, Physician [facility] [place] [phone] Social History Tobacco Use Types Packs/Day Years [...] on filedocumented in this encounter Care Teams Vp Hr Diversity Relationship Specialty Start Date End Date Amy Galvan MD [address] [place] [address] PCP - General Pediatrics 12/11/22 03/31/24 documented as of this encounter
--- OUTSIDE RECORDS SUMMARY | 2024-06-02 05:46 | XMS_ITS | Encounter Summary ---
Author Organization [facility] Address [address] [place] [address] Phone Care Team Providers Care Language Arts Teacher Name Role Phone Amy Galvan MD Primary Care Provider [phone] Reason for Visit * Reason Onset Date Comments Med Refill 08/16/2023 Encounter Details Date Type Department Care Team (Late st Contact Info) Description 08/16/2023 Refill [facility] [address] [place] [address] Amy Galvan MD [address] [place] [address] Encounter for initial prescription of injectable contraceptive [...] encounter Miscellaneous Notes * Telephone Encounter - Justine Tiwari LPN - 08/17/2023 10:00 AM EDT Prescription sent on 08/08/23 with 3 refills documented in this encounter Plan of Treatment Not on file documented as of this encounter Visit Diagnoses Diagnosis Encounter for initial prescription of injectable contraceptive documented in this encounter Care Teams Language Arts Teacher Relationship Specialty Start Date End Date Amy Galvan MD [address] [place] [address] PCP - General Pediatrics 12/11/22 03/31/24 documented as of this encounter
--- OUTSIDE RECORDS SUMMARY | 2024-06-02 05:46 | XMS_ITS | Data Portability ---
Author Organization [facility] Address [address] [place] [address] Assessment No assessment recorded. Plan of Treatment Reminders Order Date Submit Date Provider Last Modified By Organization Details Last Modified Time Details Appointments None recorded. Lab rapid strep group A, throat 2022 023 [email or web address] [facility], [address] [place] [address], [place], [address], 18:04:25 streptococc us group A, culture, throat 2022 023 [place] [facility] ([facility], [address] [place] [address], [place], [address], 16:06:55 Referral None recorded. Procedures None recorded. Surgeries None recorded. Imaging None recorded. Medication Orders dexamethaso ne sodium phosphate 10 mg/mL injection solution 2022 023 [email or web address] Not available 18:15:55 amoxicillin 400 mg/5 mL oral suspension 2022 023 [id number], [address] [facility] , [place], [address], 18:09:54 Patient TargetsNo targets recorded. Patient InstructionsNo instructions recorded. Reason for Referral None Reported. Results Created Date Observation Date Name Description Value Unit Range Abnormal Flag Note LastModifiedBy Organization Detail LastModifiedTime 05/09/19 23 05/11/2022 BETA STREP GP A CULTU RE beta strep gp A culture COMMEN T abnormal Beta- hemol ytic colon ies, not group A Strep tococ cus isola papo. Refer ence Range : Negat shalonda Penic illin and ampic illin are drugs of choi e for treat ment of beta- hemol ytic strep tococ eun infec tions . Susce ptibi lity testi ng of penic illin s and other beta- lacta m agent s appro lani by the FDA for treat ment of beta- hemol ytic strep tococ eun infec tions need not be perfo rmed routi rommel becau se nonsu scept ible isola tiffany are extre corwin rare in any beta- hemol ytic strep tococ cus and have not been repor papo for Strep tococ cus pyoge cheng (grou p A). (CLSI ) Not Available [facility] ([facility]) [address] [facility], [place], [address], 05/11/2022 16:06:55 05/09/19 23 05/09/2022 rapid strep group A, throa t Unknown Analyte Normal = Negati ve Not Available [address], [address], 05/09/2022 16:50:04 05/09/1905/09/2022 rapid strep group A, throa t Unknown Analyte negati ve Not Available [address] [place] [address], [address], 05/09/2022 16:50:04 Result Notes None recorded. Problems No Known Problems Medical Equipment None Reported. Allergies No known drug allergies Medications Name Sig Start Date Stop Date Status Note LastModified by Organization Details LastModified Time amoxicillin 400 mg/5 mL oral suspension Take 6 mL twice a day by oral route for 10 days. 2022 active Not Available Not Available Not Avai lable dexamethasone sodium phosphate 10 mg/mL injection solution Take 10 mg by injection route. 2022 active Not Available Not Available Not Avai lable Macrobid active Not Available Not Avai lable Not Available Vitals Date Recorded Body height Body mass index (BMI) Body mass index (BMI) Percentile per age and sex Body weight Pain severity - 0-10 verbal numeric rating [Score] - Reported Oxygen saturation Oxygen saturation in Arterial blood by Pulse oximetry Heart rate Respiratory rate Body temperature Systolic blood pressure Diastolic blood pressure Provider Name and Address Organization Details Last Updated DateTime 3 149.86 cm 25.9 kg/m2 84 % 82137.8 2 g 8 97 % 97 % 90 /min 16 /min 98.6 [degF] 127 mm[Hg] 81 mm[Hg] [facility] 16:56:19 Social History Question Answer Notes LastModified by Organizat ion Details LastModified Time Tobacco Smoking Status Current Some Day Smoker Wraps marijuana in tobacco leaf [facility] 05/09/2022 16:49:36 What Is Your Level Of Alcohol Consumption? Occasional [email or web address] Information not available 05/09/2022 Which Illicit Or Recreational Drugs Have You Used? Marijuana [email or web address] Information not available 05/09/2022 Do You Or Have You Ever Used E-cigarettes Or Vape? Current User Of Electronic Cigarettes [email or web address] Information not available 05/09/2022 Do You Use Any Illicit Or Recreational Drugs? Yes [email or web address] Information not available 05/09/2022 Have You Recently Traveled Abroad? No Information not available 05/09/2022 Do You Or Have You Ever Used Any Other Forms Of Tobacco Or Nicotine? Yes [email or web address] Information not available 05/09/2022 Sex: Unknown Functional Status None recorded. Mental Status None recorded. Family History Relationship Description Onset Age of this Age Resolved Age Notes LastModified by Organization Details LastModified Time Father No current problems or disability [email or web address] Not available 05/09 16:48:49 Mother No current problems or disability [email or web address] Not available 05/09 16:48:49 Medical History No medical history recorded. Gynecological HistoryNo gynecological history recorded. Obstetrics History GPAL:G 0 P 0 0 0 0 Past Encounters Encounter ID Performer Location Encounter Start Date Encounter Closed Date Diagnosis/Indication Diagnosis SNOMED-CT Code Diagnosis ICD10 Code Diagnosis Note [id number] [address] [place] [address] 05/08/2020 16:30:56 05/08/2020 17:11:00 [id number] WALT CANO MD [address] [place] [address] 05/09/2022 15:56:48 05/09/2022 18:12:52 Sore throat 090494382 J02.9 Acute tonsillitis 275124 08 J03.90 may take ibuprofen as directed on package for the appropriat e age range.Sore throatClea r liquids for comfortFre sh Grover Root Tea-Cut up fresh grover root and boil it till fragrant. drink the liquid as a tea. Can add Honey to taste. Also For Sore Throat:Thr oat Comfort Tea (by [employer])Thro at Coat Tea ( by [employer] ) Clear broth soup: Vegetable, Chicken or Beef as tolerated. Salt Water GarglesMix 1 teaspoonfu l of salt in a glass of warm water. Gargle and spit out the salt water mixture one mouthful at a time until the glass is empty. Repeat 4 times daily. Health Concerns Section Related Observation LastModified by Organization Detai ls LastModified Time None Recorded Concern Status LastModified by Organization Details LastModified Time None Recorded Advance Directives Directive None Recorded Payers Encounter Date Sequence Insurance Name Policy Number Policy Hancock Covered Member ID Hancock Member ID Guarantor Name 05/08/2020 1 [facility] [id number] Gary Dsouza [id number] Gary Dsouza 05/09/2022 1 [facility] [id number] Gary Dsouza [id number] Gary Dsouza Notes Date Note Type Note Provider Name and Address Organization Details Recorded Time 05/09/2022 text/html Sore throat, swollen/red tonsils, white spots on throat, headache started Saturday. Covid tested at home today, was negative. Strep testing. Currently on Macrobid for UTI WALT CANO MD [address] [place], [address], [place] - [facility] 05/09/2022 18:23:13 OBGyn Episode No OBEpisode recorded.
--- OUTSIDE RECORDS SUMMARY | 2024-06-02 05:46 | XMS_ITS | Encounter Summary ---
Author Organization [facility] Address [address] [place] [address] Phone Care Team Providers Care Cigarette Making Examiner Name Role Phone Amy Galvan MD Primary Care Provider [phone] Encounter Details Date Type Department Care Team (Late st Contact Info) Description 11/08/2016 Conversion Encounter [facility] [address] [place] [address] Social History Tobacco Use Types Packs/Day Years [...] on filedocumented in this encounter Care Teams Cigarette Making Examiner Relationship Specialty Start Date End Date Amy Galvan MD [address] [place] [address] PCP - General Pediatrics 12/11/22 03/31/24 documented as of this encounter
[2024-06-02] MEDS: 0.9 % Sodium Chloride 1,000 ML 999 ML IV (05:55)
[2024-06-02] MEDS: cefTRIAXone sodium 1 GM VIAL IVPUSH (05:58)
[2024-06-02] MEDS: Ketorolac Tromethamine 15 MG/ML VIAL IVPUSH (05:58)
[2024-06-02 06:24] VITALS: BP 97/53; PULSE 84; RESP 14; O2SAT 100
[2024-06-02 08:49] VITALS: BP 104/56; PULSE 88; RESP 16; O2SAT 97
[2024-06-02 10:12] VITALS: BP 98/54; PULSE 97; RESP 16; TEMP 37.1; O2SAT 97
== END 2024-06-02 10:18 | disposition home or self-care (01) ==
PROVIDERS: Emergency Medicine; Emergency Provider Student in an Organized Health Care Education/Training Program
DX: N12 Tubulo-interstitial nephritis, not specified as acute or chronic (principal); N39.0 Urinary tract infection, site not specified; R11.0 Nausea; R35.0 Frequency of micturition; Z87.442 Personal history of urinary calculi; Z79.899 Other long term (current) drug therapy
CPT/HCPCS: 36415; 74176; 80053; 81001; 81025; 83690; 85025; 87086; 87088; 87186; 96361; 96374; 96375; 96376; 99284; 99285; J0696; J1885

== ENCOUNTER → 2024-06-02 04:54 | Outpatient (BNV) | payer OTHER, SELFPAY | PROVIDERS: Emergency Provider Emergency Medicine; Visit Provider Radiology Diagnostic Radiology | DX: N13.2 Hydronephrosis with renal and ureteral calculous obstruction (principal) | CPT/HCPCS: 74176 ==

== ENCOUNTER 2025-02-19 19:54 | Emergency (ER) | payer OTHER, SELFPAY ==
[2025-02-19 19:59] VITALS: BP 116/65; PULSE 88; RESP 18; TEMP 36.9; O2SAT 97; BMI 30.7
--- NOTE | 2025-02-19 20:16 | ED_ITS ---
HPI - General Adult General Chief complaint: Vaginal Bleeding Stated complaint: ? Miscarriage Time Seen by Provider: 02/19/25 20:14 Source: patient Mode of arrival: ambulatory Limitations: no limitations History of Present Illness ED Provider: Dr. Thompson [facility] narrative: 19-year-old female presented to ER today for evaluation of vaginal bleeding and pelvic pain. Patient last menstrual cycle was approximately in October. The patient has been having irregular. Since discontinuation of her Depo shot. She is not currently on any control at this time. She has unprotected intercourse. She stated that she is soaking through a pad every 3 hours. Patient was positive for with [id number] test twice. Related Data Previous Rx's ?Medication ?Instructions ?Recorded ciprofloxacin 0.3 %-dexamethasone 4 drp otic (ears) BI D 7 days #7.5 12/21/23 0.1 % ear drops,suspension mL amoxicillin 875 mg-potassium 1 tab PO BID #20 tabs clavulanate 125 mg tablet ibuprofen 100 mg/5 mL oral 600 mg (30 mL) PO Q6-8H PRN fever 12/22/23 suspension or pain #473 mL ketorolac 10 mg tablet 10 mg PO Q6H PRN pain 5 days #20 12/26/23 tabs levofloxacin 750 mg tablet 750 mg PO DAILY 10 days #10 tabs 12/26/23 prednisone 20 mg tablet 40 mg (2 x 20 mg) PO DAILY 5 days 12/26/23 #10 tabs amoxicillin 875 mg-potassium 1 tab PO Q12H 7 days #14 tabs 02/10/24 clavulanate 125 mg tablet naproxen 500 mg tablet 500 mg PO BID PRN pain 7 day s #14 02/10/24 tabs benzonatate 100 mg capsule 100 mg PO TID PRN cough #12 caps 03/29/24 erythromycin 5 mg/gram (0.5 %) eye 0.5 inch ophthalmic (eye) BID #3.5 03/29/24 ointment grams cefuroxime axetil 500 mg tablet 500 mg PO BID #20 tabs 06/02/24 phenazopyridine 200 mg tablet 200 mg PO TID 6 doses #6 tabs 06/02/24 (Pyridium) tranexamic acid 650 mg tablet 650 mg PO TID 5 days #15 tabs 02/19/25 Allergies Allergy/AdvReac Type Severity Reaction Status Date / Time No Known Allergies (No Known Allergy Verified 02/19/25 20:06 Allergies*) Review of Systems 2 Review of Systems: Pertinent review of systems as mentioned in HPI. All other system otherwise negative. [facility]LY [facility] Past Medical History [facility] Narrative: None Medical History Depression ADHD Social History Social History Alcohol intake: current Alcohol intake frequency: holidays/special occasions only Patient Tobacco Use Status: Never used Tobacco Smoked in Last 30 Days: Yes Use of substances other than those prescribed or required for medical reasons: No Substance Use Type: Marijuana Advance Directives: No Advance Directives Information Provided: No Physical Exam ED Exam Exam: General: Pleasant, no distress, interacting appropriately Head: Normacephalic, atraumatic ENT: oral mucosa moist, neck supple, no tracheal deviation Cardiovascular: regular rate, regular rhythm, no murmurs, rubbing, gallops Respiratory: CTAB, no wheeze, rales, rhonchi Neurological: Awake and alert, no facial droop noted Skin: Warm and dry Psychiatric: Appropriate mood and thoughts Vital Signs: Vital Signs - 24 hr 02/19/25 19:59 02/19/25 20:26 Temperature 98.4 F 98.3 F Pulse Rate 88 83 Respiratory Rate 18 16 Blood Pressure 116/65 124/76 Pulse Oximetry 97 98 Oxygen Delivery Method Room Air Room Air BMI result Body Mass Index 30.7 Medical Decision Making Medical Decision Making [facility] Narrative: 19-year-old female presented hospital today for evaluation of vaginal bleeding and pelvic pain. Patient stated that she is with a 2 [id number] test. Last menstrual cycle was back in October. We will plan to obtain hCG beta levels. We will also obtain transvaginal ultrasound to rule out ectopic . Patient does not appear to be in hemodynamic compromise at this time. I do have low suspicion for ectopic . However we will plan to rule this out. CBC will be obtained to assess her hemoglobin level. Hemoglobin stable at 12.9 no sign of tachycardic no sign of hypotension. Patient's hCG is negative. I do not think patient needs a transvaginal ultrasound at this time. Due to negative HCG. I do not think this is ectopic . We will plan to give patient p.o. TXA. Low risk for blood clots. We will discharge patient on TXA course. We will have her follow up with the OBGYN team here. Referral will be provided the patient. Differential Diagnosis Differential Diagnoses: The differential diagnosis associated with the presentation includes Menses, ectopic , , miscarriage Lab Data MDM Lab Attestation statement: I reviewed the patient's lab results. 02/19/25 20:16 02/19/25 20:16 Labs: Lab Results 02/19/25 Range/Units 20:16 WBC 6.4 (4.8-10.8) X10*3/uL RBC 4.26 (4.20-5.50) X10*6/uL Hgb 12.9 (12.0-16.0) g/dl Hct 37.2 (37.0-47.0) % MCV 87.3 (80.0-98.0) fL MCH 30.3 (27.0-33.0) pg MCHC 34.7 (31.0-35.0) g/dl RDW 12.8 (11.0-16.0) % Plt Count 244 (160-400) X10*3/uL MPV 9.8 (9.4-12.3) fL Immature Gran % (Auto) 0.2 (0.0-0.4) % Neut % (Auto) 41.8 L (45-73) % Lymph % (Auto) 49.6 H (20-40) % [place] % (Auto) 5.3 (2-11) % Eos % (Auto) 2.2 (0-4) % Baso % (Auto) 0.9 (0-2) % Lymph # (Auto) 3.2 (1.2-4.9) X10*3/uL [place] # (Auto) 0.3 (0.1-1.2) X10*3/uL Eos # (Auto) 0.1 (0.0-0.4) X10*3/uL Baso # (Auto) 0.1 (0.0-0.2) X10*3/uL Abs Immat Gran (auto) 0.01 (0.00-0.03) X10*3/uL Absolute Neuts (auto) 2.7 (2.0-8.3) x10*3/uL Absolute Nucleated RBC 0.000 (0.0-0.012) X10*3/uL Nucleated RBC % (auto) 0.0 (0.0-0.2) /100WBC Sodium 139 (135-145) mmol/L Potassium 4.0 (3.3-5.1) mmol/L Chloride 108 (96-108) mmol/L Carbon Dioxide 23 (22-29) mmol/L Anion Gap 12 (12-20) BUN 14 (9-16) mg/dL Creatinine 0.63 (0.5-1.4) mg/dL Estim Creat Clear Calc 124.4 Estimated GFR > 60 Random Glucose 91 (60-115) mg/dL Calcium 9.2 (8.4-10.2) mg/dL Total Bilirubin 0.3 (0.0-1.0) mg/dL AST 24 (5-31) U/L ALT 27 (0-31) U/L Alkaline Phosphatase 75 (39-117) U/L Total Protein 7.7 (6.5-8.0) g/dL Albumin 4.8 (3.5-5.0) g/dL Beta HCG, Quant < 2 mIU/mL Blood Type A Positive Antibody Screen NEGATIVE Discharge Plan Discharge Clinical Impression: Abnormal menses Patient Disposition: Home, Self-Care Instructions: Abnormal (Dysfunctional) Uterine Bleeding (ED) Prescriptions: New tranexamic acid 650 mg tablet 650 mg PO TID 5 Days Qty: 15 0RF No Action amoxicillin-pot clavulanate 875-125 mg tablet 1 tab PO BID Qty: 20 0RF ketorolac 10 mg tablet 10 mg PO Q6H PRN (Reason: pain) 5 Days Qty: 20 0RF Rx Instructions: Patient received Toradol 30 IM in the ED prednisone 20 mg tablet 40 mg PO DAILY 5 Days Qty: 10 0RF levofloxacin 750 mg tablet 750 mg PO DAILY 10 Days Qty: 10 0RF amoxicillin-pot clavulanate 875-125 mg tablet 1 tab PO Q12H 7 Days Qty: 14 0RF naproxen 500 mg tablet 500 mg PO BID PRN (Reason: pain) 7 Days Qty: 14 0RF benzonatate 100 mg capsule 100 mg PO TID PRN (Reason: cough) Qty: 12 0RF erythromycin 5 mg/gram (0.5 %) ointment 0.5 inch ophthalmic (eye) BID Qty: 3.5 0RF ciprofloxacin-dexamethasone 0.3-0.1 % drops,suspension 4 drp otic (ears) BID 7 Days Qty: 7.5 0RF Rx Instructions: LEFT ear ibuprofen 100 mg/5 mL suspension 600 mg PO Q6-8H PRN (Reason: fever or pain) Qty: 473 0RF cefuroxime axetil 500 mg tablet 500 mg PO BID Qty: 20 0RF phenazopyridine [Pyridium] 200 mg tablet 200 mg PO TID Qty: 6 0RF Referrals: [facility] Group] Print Language: Hong Konger
[2025-02-19 20:19] LABS: MANUAL DIFF FLAG NO
[2025-02-19 20:26] VITALS: BP 124/76; PULSE 83; RESP 16; TEMP 36.8; O2SAT 98
[2025-02-19 20:26] LABS: Hematocrit 37.2 % (37.0-47.0); Hemoglobin 12.9 g/dl (12.0-16.0); Imm Gran Abs Auto 0.01 X10*3/uL (0.00-0.03); Imm Gran Pct Auto 0.2 % (0.0-0.4); Lymphocytes Absolute Auto 3.2 X10*3/uL (1.2-4.9); Mean Corpuscular HGB Conc 34.7 g/dl (31.0-35.0); Mean Corpuscular Hemoglobin 30.3 pg (27.0-33.0); Mean Corpuscular Volume 87.3 fL (80.0-98.0); NRBC Abs Auto 0.000 X10*3/uL (0.0-0.012); NRBC Pct Auto 0.0 /100WBC (0.0-0.2); Platelet Count 244 X10*3/uL (160-400); Red Blood Count 4.26 X10*6/uL (4.20-5.50); White Blood Count 6.4 X10*3/uL (4.8-10.8)
--- OUTSIDE RECORDS SUMMARY | 2025-02-19 20:38 | XMS_ITS | Clinical Summary ---
Author Organization [facility] Address [address] [place] [address] Phone Care Team Providers Care Public Events Facilities Rental Manager Name Role Phone Physician, No Pcp Primary Care Provider Unavaila ble Allergies No known active allergies Social History Tobacco Use Types Packs/Day Years Used Date Smoking Tobacco: Never Smokeless Tobacco: Current Tobacco Cessation:Ready to Q uit: Not Asked; Counseling Given: Not Answered Alcohol Use Standard Drinks/Week Comments Not Currently 0 (1 standard drink = 0.6 oz pur e alcohol) Comments No Sex and Gender Information Value Date Recorded Sex Assigned at Not on file Legal Sex Female 8:16 PM EDT Gender Identity Not on file Sexual Orientation Not on file Obstetrics History Last Filed Vital Signs Vital Sign Reading Time Taken Comments Blood Pressure 98/74 11/11/2024 8:22 PM EDT Pulse 75 11/11/2024 8:22 PM EDT Temperature 36.6 C (97.9 F) 11/11/2024 8:22 PM EDT Respiratory Rate 16 11/11/2024 8:22 PM EDT Oxygen Saturation 97% 11/11/2024 8:22 PM EDT Inhaled Oxygen Concentration - - Weight 68 kg (150 lb) 11/11/2024 8:22 PM EDT Height 165.1 cm (5' 5 ) 11/11/2024 8:22 PM EDT Body Mass Index 24.96 11/11/2024 8:22 PM EDT Plan of Treatment Health Maintenance Due Date Last Done Comments Gonorrhea/Chlamydia Screening 2003 Meningococcal B Vaccine (1 of 2 - Standard) 2019 Depression Screening 03/25/2024 Cervical Cancer Screening: Pap Smear 2024 DTaP,Tdap,and Td Vaccines (7 - Td or Tdap) 07/19/2024 07/19/2014, 05/05/2007, 10/27/2004, Additional history exists Annual Well Child Visit (3-21 years old) 11/11/2024 04/01/2023, 02/23/2021, 12/25/2019, Additional history exists Cholesterol Screening (Lipid Panel) 11/11/2024 HIV Screening 11/11/2024 Hepatitis C Screening 11/11/2024 Social Influencers of Health Screening 11/11/2024 COVID-19 Vaccine ( season) 2024 Influenza Vaccine (#1) 2024 , 12/17/2022, 02/23/2021, Additional history exists RSV Immunization Adult Patients (1 - 1-dose 75+ series) 2078 Hepatitis B Vaccines Completed 2003, 2003, 2003 HIB Vaccines Completed 10/27/2004, 09/22, 2003, Additional history exists Pneumococcal Vaccine: Pediatrics (0 to 5 Years) and At-Risk Patients (6 to 49 Years) Completed 10/27/2004, 2003, 2003, Additional history exists IPV Vaccines Completed 05/05/2007, 10/2003, 2003, Additional history exists MMR Vaccines Completed 05/05/2007, 2004 Varicella Vaccines Completed 05/05/2007, 2004 HPV Vaccines Completed 03/15/2015, 07/24, 07/08/2014 Hepatitis A Vaccines Completed 07/29/2015, 07/20/19 15 Meningococcal ACWY Vaccine Completed 12/25/2019, RSV Immunization Patients Under 20 months Aged Out No longer eligible based on patient's age to complete this topic Insurance [facility] Care Teams Public Events Facilities Rental Manager Relationship Specialty Start Date End Date Physician, No Pcp PCP - General 11/11/24
--- OUTSIDE RECORDS SUMMARY | 2025-02-19 20:38 | XMS_ITS | Encounter Summary ---
Author Organization [facility] Address [address] [place] [id number] Phone Care Team Providers Care Plant Utility Person Name Role Phone Amy Galvan MD Primary Care Provider [phone] Encounter Details Date Type Department Care Team (Late st Contact Info) Description 06/19/2016 Documentation [facility] Family Medicine [address] [place] [address] Family Medicine, Physician [facility] [place], [place] [id number] Social History Tobacco Use Types Packs/Day Years [...] on filedocumented in this encounter Care Teams Plant Utility Person Relationship Specialty Start Date End Date Amy Galvan MD [address] [place] [id number] PCP - General Pediatrics 12/11/22 03/31/24 documented as of this encounter
--- OUTSIDE RECORDS SUMMARY | 2025-02-19 20:38 | XMS_ITS | Clinical Summary ---
Author Organization [facility] Address [address] [place] [address] Phone Care Team Providers Care Gas Jockey Name Role Phone Unavailable Primary Care Provider Unavailabl e Allergies Active Allergy Reactions Criticality Noted Date Comments Cephalexin Other (see comments) 02/03/2024 Itchy throat Medications medroxyPROGESTERon e 150 MG/ML injectionIndicatio ns:Encounter for initial prescription of injectable contraceptive INJECT 1 ML (150 MG TOTAL) INTO THE MUSCLE EVERY 3 (THREE) MONTHS 1 mL 3 Active Active Problems Problem Noted Date Diagnosed Date Hearing problem of left ear 10/17/2023 Overview (12/20/2023): Ongoing recurrent issue going on for years PARISH on left 12/20/2023 Referred to ENT Assessment & Plan (12/20/2023 11:32 AM EDT): Gave pt ENT list so she can call and get on a list- would not try [facility] or [facility] as she is 18yo Assessment & Plan (10/17/2023 9:38 AM EDT): Patient reports longstanding issues with her ear but certainly hearing loss on exam today-refer to ENT; # s given to make appointment Dysfunction of left eustachian tube 04/01/2023 Overview (04/01/2023): Ongoing issues with blocked ear for years Assessment & Plan (04/01/2023 4:35 PM EST): Trial of chewing gum to open eustachian tube discussed with M Encounter for surveillance of injectable contrac eptive 05/25/2022 Overview (10/01/2022): 05/25/2022 Depo Start Liked it - way fewer cramps and only some spotting Misses injection in July and then insurance issues Assessment & Plan (12/20/2023 11:34 AM EDT): Discussed recent no-show visits for Depo injections She is unsure that she wants to continue Depo secondary to weight gain Discussed other BC options-she is not interested in IUD, BC pill And NuvaRing could be a good option for her-she will think about it She does have pending ASSISTANT BOOKKEEPER appointment in a few months She is using condoms regularly Assessment & Plan (04/01/2023 4:35 PM EST): Continue with q 13 weeks depoprovera - next due in late April Assessment & Plan (10/01/2022 4:47 PM EDT): Restart 10/01/22 depoprovera Anxiety disorder 12/30/2019 Dysmenorrhea in adolescent 08/19/2018 Overview (12/25/2019): 12/2019: has a lot of irregular periods, but never seen by ASSISTANT BOOKKEEPER for this. Never had any management for menses, irregular cycles, has had RLQ pain after menses every other month. Was dx with a cyst on her R ovary, never seen by ASSISTANT BOOKKEEPER or for any f/u (this was identified during an ED visit 10/22/2019). 2019 Would like to go on Nexplanon, does not feel OCPs would work well for her I don't do well taking medication every day and doesn't like needles or shots so Depo is not a good match either. Prefers a LARC so referral to [facility] BOOKKEEPER/Midwives made, information given at PE 07/2018 and mom and pt to make appointment for this. Assessment & Plan (12/25/2019 6:53 PM EDT): Discussed options for management of irregular menses, and given hx of cyst is reasonable to establish with a ASSISTANT BOOKKEEPER if desired especially since she was considering nexplanon. Reviewed more worrisome changes to watch for and when she should be seen back in the office PRN. Assessment & Plan (08/19/2018 11:05 PM EDT): Discussed menses management with Nexplanon through [facility] BOOKKEEPER as well as use of ibuprofen even a day before menses expected to try to manage cramping/keep to a minimum. Discussed option of Rx Naproxyn, but declined today, can follow up with [facility] BOOKKEEPER re: other management options. Not SA. Return PRN. ADHD (attention deficit hype ractivity disorder), predominantly hyperactive impulsive type 08/03/2017 Overview (12/25/2019): Still has an IEP at school - addressing reading comprehension and math and social skills. Was supposed to be reevaluated in the spring, but hasn't been for this school year. Mom is still in contact with school to try to work on this. Previously treated by Dr. Leal, has been off meds since 10/2016. Has academic issues at school with some concern this school year ([id number]) re: passing all classes, may need to do summer school. Per mom and pt this is not uncommon. For [id number] school year mom has no concerns but pt says she is struggling in a class or two. Has IEP in place. Does not wish to be on medication for ADHD at this time. Assessment & Plan (08/07/2018 3:30 PM EDT): Should continue with IEP and work with school for help/accommodations. Important to work with teachers and not miss classes - work closely with school as needed around this. Follow up with changes or concerns. Assessment & Plan (08/04/2017 11:02 PM EDT): We discussed options of using medication. We talked about making sure the IEP/504 Plan for patient is reviewed regularly. We talked about academic success and issues this school year, summer school and to follow up when next school year starts if she continues to have academic issues when she transitions to high school. Stressed that she should come back sooner with additional changes. At this time there is no desire by patient or mom to be on medication for ADHD. F/u with [facility] if this changes or with additional concerns. Work closely with school. Sleep pattern disturbance 08/03/2017 Overview (12/25/2019): Rarely using melatonin 12/2019 I use it if I stay up late past 1am because it helps me to sleep once a month per pt. In the past has used melatonin, mom feels this was helpful and does not feel pt's current sleep pattern is an issue. Pt reports issues falling asleep, issues staying asleep, often up by 4/5am. Needs TV on to fall asleep and stay asleep has always been like that - has not discussed sleep routine with therapist since mom didn't think it was an issue. Assessment & Plan (12/15/2020 11:39 AM EDT): Sleep deprivation can lead to all kinds of problems. 1. Start with your present bedtime, but go to bed 5-10 minutes earlier every night until you are going to bed around 10:30 2. Turn off electronics an hour before bed 3. Take melatonin 3 mg around 7pm. 4. NO NAPS 5. Get fresh air and exercise 6. If you waken at night get up and do something boring for 15 minutes. 7. Keep things dark and quiet in bedroom, which should be only for sleep. Work with mom on this. Assessment & Plan (12/25/2019 6:49 PM EDT): Discussed sleep hygiene, should not be napping in the afternoon if this can be avoided as it is likely to be contributing to the issues with her sleep. Also introduced to Melissa Momin for a warm handoff in the office as well as to schedule an intake for next week. Follow up if sx worsen or with additional concerns. Assessment & Plan (08/04/2017 11:06 PM EDT): We talked about sleep hygiene. Stressed that screens are not helping sleep even if they seem like they are. Talk with therapist about other sleep strategies to try, several suggestions offered today. Follow up with sleep changes or ongoing concerns. We stressed how sleep affects overall health, mental well being etc. Mood disorder 06/20/2012 Overview (12/25/2019): 2020: No longer seeing a therapist he left but would like to start on meds. Lots of anxiety. No therapist for a long time. Denies SI but does superfically cut her L lower arm, has never needed stitches, was seen in the ED once for this a long time ago and they treated with antibiotic ointment. Was to be seen by a psychiatrist for recommendations on tx given hx of not finding previous treatments effective. Mom says this was more of an issue of pt not being willing to swallow medication previously. Followed by therapist at school At 07/2017 positive screens, at 07/2018 positive screens Reports SI but no plans - stressed watching for changes with mom and pt - she was evaluated in the ED 12/2017 for self inflicted injury that did NOT require stitches or specific care CRISIS evaluated in ED, parent and pt both have this info Work closely with therapist, and with school Assessment & Plan (12/25/2019 7:02 PM EDT): Rx for hydroxyzine, discussed proper use, that it can be used PRN if needed, discussed may cause drowsiness. May consider putting her back on prozac as she has been on this in the past, I looked back to 2017 as a chart review and do not see specific ASE reported, looked like medication was not as consistently taken but not necessarily causing mood or behavior concerns. Consider adding the prozac back in after we can discuss in more detail and while pt has therapy bridge supports to more oil heaterman therapist again. Assessment & Plan (08/14/2018 9:28 AM EDT): Continue to watch for changes in mood. Since she has been on medications in the past and had bad side effects/reactions, I would like some input from a psychiatrist - they are already on the way to get an evaluation with the psychiatrist that works with their therapist but unknown what the timing is - work with this if possible and follow up with us if additional supports needed or changes occur. Assessment & Plan (08/04/2017 11:05 PM EDT): Continue in therapy with long-term therapist - at school and outpatient. We reviewed safety, contracted for safety and information re: CRISIS given to both mom and patient if symptoms change or worsen acutely, need to follow up in the office with additional changes or concerns. Encouraged pt to talk about cutting with therapist and work on coming up with other coping strategies for stress and mood changes. Continue to work with school, talked about issues with peers at school with therapist and school. Work on building supports. Follow up next school if not improving, sooner with additional changes or concerns. Resolved Problems Problem Noted Date Diagnosed Date Resolved Date Costochondritis 04/01/2023 12/20/2023 Dysuria 10/01/2022 12/20/2023 Overview (10/01/2022): + UC 04/2022 Assessment & Plan (04/01/2023 4:35 PM EST): Will check UC today Assessment & Plan (10/01/2022 4:46 PM EDT): U/A showing nitrites so will send UC and rx with abx for presumptive UTI History of COVID-19 04/11/2021 10/17/19 Need for case management follow-up 12/25/2019 12/20/2023 Overview (12/25/2019): Adolescent routine screening for GC/Chlam not able to be completed 12/2019 at due to national shortage, but lab ordered, should be collected with next available. Immunizations Immunization Administration Dates Next Due DTaP 5 05/05/2007, 5,2003,08/08,2003 H1N1 05/10/2009,01/25/2009 HPV Vaccine 9 Valent 03/15/2015 HPV, Quadrivalent 08/19/2014,07/08/2014 Hep A, ped/adol 07/29/2015,07/19/2014 Hep B, ped/adol 2003,2003,2003 Hib (HbOC) 10/27/2004, 4,2003,05/30 IPV 05/05/2007, 4,2003,05/30 Influenza Split 12/12/2011,12/29/2010,12/20/2009 Influenza, injectable, quadrivalent 03/01/2014 Influenza, injectable, quadr ivalent, preservative free 12/17/2022,02/23/2021,12/25/2019,12/12,11/19/2016,01/12/2016,03/15/2015 Influenza, injectable, trivalent 009,01/20/2008,01/21/2007,05/06,01/11/2005,2004,2003 Influenza, injectable, triva lent, preservative free 12/20/2023 MMR 2004 MMRV 05/05/2007 Meningococcal Conj (Menactra) MCV4P 12/25/2019,0 07/19/2014 Pneumococcal Conjugate 10/27/2004,2003,2003,05/30 Tdap 07/19/2014 Varicella 2004 Family History Medical History Relation Name Comments ADD / ADHD Brother Chad Dsouza Asthma Brother Chad Dsouza Strabismus Father Tony Dsouza Hypertension Maternal Grandfather Throat cancer Maternal Grandmother Asthma Mother Sruthi Dsouza Depression Mother Sruthi Dsouza Diabetes Paternal Grandmother Relation Name Status Comments Brother Chad Dsouza Alive Father Tony Dsouza Alive Father: Strabi smus, Alive and well Maternal Grandfather Materna l grandfather: Hypertension Maternal Grandmother Materna l grandmother: Cancer, throat Mother Sruthi Dsouza Alive Mother: Asth ma, Depression Paternal Grandfather Paterna l uncle: cirrhosis of the liver Paternal Grandmother Paterna l grandmother: Diabetes mellitus Paternal Great-Grandmother Alive g reat pat. aunt: mental health issues Social History Tobacco Use Types Packs/Day Years [...] Orientation Bisexual 12/25/2019 7: 04 PM EDT Last Filed Vital Signs Vital Sign Reading Time Taken Comments Blood Pressure 101/75 10/17/2023 8:07 AM EDT Pulse 82 10/17/2023 8:07 AM EDT Temperature 36.9 C (98.4 F) 02/03/2024 4:15 PM EST Respiratory Rate - - Oxygen Saturation 97% 04/01/2023 3:33 PM EST Inhaled Oxygen Concentration - - Weight 71.2 kg (157 lb) 02/03/2024 4:15 PM EST Height 151.1 cm (4' 11.5 ) 04/01/2023 3:33 PM ES T Body Mass Index 31.18 04/01/2023 3:33 PM EST Plan of Treatment Health Maintenance Due Date Last Done Comments Men B Vaccine (1 of 2 - Standard) 2019 DTaP,Tdap,and Td Vaccines (7 - Td or Tdap) 07/19/2024 07/19/2014, 05/05/2007, 10/27/2004, Additional history exists Influenza Vaccines (#1) 2024 12/20/19, 12/17/2022, 02/23/2021, Additional history exists COVID-19 Vaccine (2024-2 6 season) 2024 Hepatitis B Vaccines Completed 2003, 2003, 2003 HIB Vaccines Completed 10/27/2004, 09/22, 2003, Additional history exists Pneumococcal Vaccine Completed 10/27/2004, 2003, 2003, Additional history exists IPV Vaccines Completed 05/05/2007, 10/2003, 2003, Additional history exists MMR Vaccines Completed 05/05/2007, 2004 Varicella Vaccines Completed 05/05/2007, 2004 HPV Vaccines Completed 03/15/2015, 07/24, 07/08/2014 Hepatitis A Vaccines Completed 07/29/2015, 07/20/19 15 Meningococcal Vaccine Completed 12/25/2019, 015 Procedures * Due to [place] [employer] law, this organization might not be sharing sensitive test results. Procedure Name Priority Date/Time Associated Diagnosis Comments CHLAMYDIA AND GONORRHEA, AMPLIFIED Routine 08/27/2023 11:29 AM EDT Special screening examination for chlamydial disease from Last 3 Months or Most Recently Relevant to Health Maintenance Results * Due to [place] [employer] law, this organization might not be sharing sensitive test results. * Chlamydia and Gonorrhoea, Amplified (08/27/2023 11:29 AM EDT) C trach GRIFFIN Negative Negative [facility] N gonorrhoeae GRIFFIN Negative Negative [facility] Urine (Urine) 08/27/2023 11: 29 AM EDT 08/27/2023 Comment:UR Narrative [facility] - 08/30/2023 9:08 AM EDT Performed at: - [facility] [address], [address], [place], [place] [id number] Environmental Protection Forester: Abdullahi Martinez MD, Phone: [phone] us Amy Galvan MD LAB MICROBIOLOGY - GENERAL ORD ERABLES Final Result [facility] [address] [place] [address] from Last 3 Months or Most Recently Relevant to Health Maintenance
--- OUTSIDE RECORDS SUMMARY | 2025-02-19 20:38 | XMS_ITS | Encounter Summary ---
Author Organization [facility] Address [address] [place] [phone] Phone Care Team Providers Care Liquid Center Assembler Name Role Phone Amy Galvan MD Primary Care Provider Encounter Details Date Type Department Care Team (Late st Contact Info) Description 06/19/[address] [facility] Family Medicine [address] [place] [address] Family Medicine, Physician [facility] [place] [phone] Social History Tobacco Use Types Packs/Day Years [...] on filedocumented in this encounter Care Teams Liquid Center Assembler Relationship Specialty Start Date End Date Amy Galvan MD [address] [place] [id number] PCP - General Pediatrics 12/11/22 03/31/24 documented as of this encounter
--- OUTSIDE RECORDS SUMMARY | 2025-02-19 20:39 | XMS_ITS | Encounter Summary ---
Author Organization [facility] Address [address] [place] [id number] Phone Care Team Providers Care Radiagraph Operator Name Role Phone Amy Galvan MD Primary Care Provider [phone] Encounter Details Date Type Department Care Team (Late st Contact Info) Description 06/19/2016 Documentation [facility] Family Medicine [address] [place] [address] Family Medicine, Physician [facility] [place] [phone] Social History Tobacco Use Types Packs/Day Years [...] on filedocumented in this encounter Care Teams Radiagraph Operator Relationship Specialty Start Date End Date Amy Galvan MD [address] [place] [phone] PCP - General Pediatrics 12/11/22 03/31/24 documented as of this encounter
--- OUTSIDE RECORDS SUMMARY | 2025-02-19 20:39 | XMS_ITS | Encounter Summary ---
Author Organization [facility] Address [address] [place] [address] Phone Care Team Providers Care Pipe Fitter Helper Name Role Phone Amy Galvan MD Primary Care Provider [phone] Encounter Details Date Type Department Care Team (Late st Contact Info) Description 09/14/2016 Documentation [facility] Family Medicine [address] [place], [place] [phone] Family Medicine, Physician [facility] [place], [place] [phone] Social History Tobacco Use Types Packs/Day Years [...] on filedocumented in this encounter Care Teams Pipe Fitter Helper Relationship Specialty Start Date End Date Amy Galvan MD [address] [place] [id number] PCP - General Pediatrics 12/11/22 03/31/24 documented as of this encounter
--- OUTSIDE RECORDS SUMMARY | 2025-02-19 20:39 | XMS_ITS | Data Portability ---
Author Organization [place] - [facility], Allergy Address [address] [address] Care Team Providers Care Cq Developer Name Role Phone STONEY GRANDAELLE Primary Care Provider [phone] Assessment Encounter Date Assessment Date Assessment LastModified by Organization Details LastModified Time 12/30/2023 12/30/2023 18-year-old female presents for revaluation of left acute otitis externa. Otologic examination demonstrates erythematous and edematous pre-auricular area and external auditory canal erythema, improved since last seen per Dr. Melgar. Purulent otorrhea was suctioned to reveal generally thickened left TM. Wick was placed and inflated in left ear. 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 Recommend continuing Levaquin, Augmentin, and TobraDex drops. She will return in two days for wick removal and two weeks for revaluation once antibiotic course is completed. We were unable to view her CT scan today, which had a finding concerning for cholesteatoma. The patient and her mother are aware a formal diagnosis of this would require the infection to settle down. We will continue to monitor. Given this infection seems to be related to an infected preauricular pit will likely need the pit formally removed once infection has settled. [email or web address] Not available 12/30/2023 14:52:22 01/17/2024 01/17/2024 18-year-old female presents for reevaluation of infected preauricular pit. On examination infection has resolved nicely. The canal is now patent and TM normal to inspection. She would like to discuss removal of preauricular pit so I have arranged follow-up with surgeon. She will call for sooner evaluation if she has any signs of recurrent infection. All questions were answered. [email or web address] Not available 01/17/2024 16:21:37 02/12/2024 02/12/2024 Patient presents with bilateral ear pain and sensation of blockage with reduced hearing. Has been taking amoxicillin for two days for presumed otitis media. Physical exam reveals intact tympanic membranes without purulent effusion, and a markedly erythematous right tympanic membrane. Reviewed that there is no indication for oral antibiotic therapy. She would prefer to complete the course. Recommend dsaily use of fluticasone nasal spray utilizing crossed-hand application technique. As for the erythema, we reviewed this may represent Q-tip trauma. Discussed that her Q-tip use makes it difficult to assess for acute otitis externa. Patient feels her symptoms are very consistent with her previous infections. Due to the otalgia, will recommend antibiotic/ster oid combination drop for the right ear. Patient to call with new or worsening symptoms. Scheduled next month with Dr. Cespedes for surgical consult regarding the preauricular pit. Reviewed with patient it is currently not infected. [email or web address] Not available 02/12/2024 14:53:54 Plan of Treatment Reminders Order Date Submit Date Provider Last Modified By Organization Details Last Modified Time Details Appointments None recorded. Lab None recorded. Referral None recorded. Procedures None recorded. Surgeries excision, preauricul ar cyst (SURG) 2023 [email or web address] Not available 06:56:[address], temporal bone, w/o contrast 2023 COUNTS INCLUDE 234 BEDS AT THE [facility] [place], [address] [facility], [facility], [place], [address], 4 10:07:34 Medication Orders ciprofloxa jerad 0.3 %-dexameth asone 0.1 % ear drops,susp ension 2023 [facility] #[id number], [address] [facility], [place], [address], 4 15:10:10 TobraDex 0.3 %-0.1 % eye drops,susp ension 2023 024 [facility] #[id number], [address] [facility] [place], [address], 13:07:30 Patient TargetsNo targets recorded. Patient InstructionsNo instructions recorded. Reason for Referral None Reported. Results Created Date Observation Date Name Description Value Unit Range Abnormal Flag Note LastModifiedBy Organization Detail LastModifiedTime 12/30/1912/26/2023 CT, sinus es, w/o contr ast No observ ation record ed. [email or web address] Not Available 09/2023 14:40:29 02/13/20 24 audio gram No observ ation record ed. BARCODE Not Available 2023 12:31:48 03/24/20 24 audio gram No observ ation record ed. BARCODE Not Available 2023 08:53:04 Result Notes None recorded. Problems Name Problem SNOMED Code Status Onset Date Resolution Date Notes Provider Name and Address Organization Details Recorded Time Acute otitis externa 22535369 Active 2023 OLIVIER CISNEROS MD [address] [facility] [address], [place], [address], [facility] - [facility] 15:40:19 Abscess of preauricula r sinus 059938951 Active 2023 NATALY MACK PA-C [address] [address], [place], [address], [facility] - [facility] 14:52:47 Bilateral disorder of Eustachian tubes 5736018197786 107 Active 2023 KARLA VERDUZCO [address] [facility] [address] [facility], [place], [address], [facility] - [facility] [place] 4 13:29:15 Acute myringitis of right ear 7717705337972 108 Active 2023 Tomer tee [place] - [facility] [place] 4 14:50:17 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 2023 JAMI Hunter MD [address] [address], [place], [address], [facility] - [facility] 4 15:31:47 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 Procedures Surgical History Date Name Laterality Status Provider Name and Address Organization Details Recorded Time 03/20/20 24 Comp Audio with Tymps - 68500 & 81276 completed ILDA ARZATE, [facility] [address] [address], [place], [address], [facility] 03/20/2024 15:43:52 02/12/20 24 Tympanometry - 11941 completed KELSI JARAMILLO, [facility] [address] [address], [place], [address], [facility] 02/12/2024 13:28:06 Imaging Results None recorded. Procedure Notes None recorded. Medical Equipment None Reported. Allergies Allergen ID Allergen Name Allergen Category Reaction Reaction Severity Criticality Documentation Date Start Date Code Code System Note Provider Name and Address Organization Details Recorded Time 408085 ciproflox acin medicatio n Not available Not available Not available 12/27/2023 2551 RxNorm Fidelia tee [facility] 4 15:16:00 833512 Keflex medicatio n Not available Not available Not available 12/27/2023 25539 7 RxNorm Fidelia tee [facility] 4 15:16:08 Medications Name Sig Start Date Stop Date Status Note LastModified by Organization Details LastModified Time prednisone 20 mg tablet 02/11 completed Not Available Not Available Not Available ketorolac 10 mg tablet 12/26 completed Not Available Not Available Not Available cephalexin 500 mg tablet TAKE 1 TABLET BY MOUTH THREE TIMES A DAY FOR 7 DAYS 12/26 completed Not Available Not Available Not Available levofloxacin 750 mg tablet 02/11 completed Not Available Not Available Not Available ibuprofen 100 mg/5 mL oral suspension SHAKE WELL AND TAKE 30 ML (600 MG) BY MOUTH EVERY 6 TO 8 HOURS NEEDED FOR FEVER OR PAIN. 12/26 completed Not Available Not Available Not Available medroxyproge sterone 150 mg/mL intramuscula r suspension INJECT 1 ML (150 MG TOTAL) INTO THE MUSCLE EVERY 3 (THREE) MONTHS 02/11 completed Not Available Not Available Not Available naproxen 500 mg tablet active Not Available Not Available No t Available amoxicillin 875 mg-potassium clavulanate 125 mg tablet TAKE 1 TABLET BY MOUTH TWICE DAILY FOR 10 DAYS. 03/20 completed Not Available Not Available Not Available tobramycin 0.3 %-dexamethas one 0.1 % eye drops,suspen stacey INSTILL 4 DROPS INTO LEFT EAR TWICE A DAY FOR 14 DAYS 02/11 completed Not Available Not Available Not Available oxycodone 5 mg tablet TAKE 1 TABLET BY MOUTH EVERY 6 HOURS FOR 3 DAYS NEEDED FOR PAIN 02/11 completed Not Available Not Available Not Available ciprofloxaci n 0.3 %-dexamethas one 0.1 % ear drops,suspen stacey Instill 4 drops twice a day by otic route for 7 days. 03/20 completed Not Available Not Available Not Available Vitals Date Recorded Body height Body mass index (BMI) [Percentile] Per age and sex Body mass index (BMI) Body weight Provider Name and Address Organization Details Last Updated DateTime 12/27/2023 149.86 cm 94 % 31.1 kg/m2 61594.22 g Fidelia Monroy [facility] 12/27/2023 15:15:42 Date Recorded Body height Body mass index (BMI) Body mass index (BMI) [Percentile] Per age and sex Body weight Provider Name and Address Organization Details Last Updated DateTime 12/30/2023 149.86 cm 31.1 kg/m2 94 % 06428.22 g Hima Barrera [facility] 12/30/2023 13:35:32 Date Recorded Body height Body mass index (BMI) Body mass index (BMI) [Percentile] Per age and sex Body weight Provider Name and Address Organization Details Last Updated DateTime 01/17/2024 149.86 cm 31.1 kg/m2 94 % 15932.22 g Rebecca Rootos [facility] 01/17/2024 15:57:49 Date Recorded Body height Body mass index (BMI) Body mass index (BMI) [Percentile] Per age and sex Body weight Provider Name and Address Organization Details Last Updated DateTime 02/12/2024 149.86 cm 32.3 kg/m2 95 % 77925.78 g Fidelia Hodgesusu [facility] 02/12/2024 13:07:05 Date Recorded Body height Body mass index (BMI) [Percentile] Per age and sex Body mass index (BMI) Body weight Provider Name and Address Organization Details Last Updated DateTime 03/20/2024 149.86 cm 95 % 32.3 kg/m2 61307.78 g Miracle Chopra [facility] 03/20/2024 15:09:40 Social History None recorded. Functional Status None recorded. Mental Status None recorded. Family History Nothing Reported. Medical History Condition Response Anxiety Y Gynecological HistoryNo gynecological history recorded. Obstetrics History GPAL:G 0 P 0 0 0 0 Past Encounters Encounter ID Performer Location Encounter Start Date Encounter Closed Date Diagnosis/Indication Diagnosis SNOMED-CT Code Diagnosis ICD10 Code Diagnosis IMO Codes Diagnosis Note OLIVIER CISNEROS MD [facility] [address] [address] 12/27/2023 14:57:51 12/27/2023 15:55:10 Acute otitis externa 81085169 H60.509 18-year-ol d female presents today for evaluation of AOE on the left. She has had several emergency department visits and was put on Levaquin, prednisone , and Toradol yesterday. She has had briana placed which seemed to worsen her symptoms.O n exam today, she does have a preauricul ar pit which is not actively draining, but most of the swelling seems to emanate from this region. Her ear canal is almost completely swollen shut. There is tenderness to palpation in this region. I did replace the wick. It is unclear if she had a true allergic reaction to the Ciprodex eardrops as she has taken both Levaquin and prednisone without reaction since yesterday. I did send in TobraDex given concern.Wi ll plan on reassessme nt on Saturday for wick removal and replacemen t if needed. There is a finding on the CT scan concerning for cholesteat pepper. I counseled her that formal diagnosis of this would require the infection to settle down and a good ear exam. NATALY MACK PA-C [facility] [address] [address] 12/30/2023 13:30:01 12/30/2023 14:16:36 Acute otitis externa 82553650 H60.509 Abscess of preauricular sinus 534256942 H60.02 [id number] NATALY MACK PA-C [facility] [address] [address] 01/17/2024 15:49:39 01/17/2024 16:08:37 Abscess of preauricular sinus 024402767 H60.02 Acute otitis externa 302 22239 H60.509 [id number] TOMER WALL PA-C [facility] [address] [address] 02/12/2024 13:00:44 02/12/2024 13:37:25 Bilateral disorder of Eustachian tubes 5542400507 285141 H69.93 Tympanomet ry: Right ear: Type CLeft ear: Type A, rounded Acute myri ngitis of right ear 8856886048 357782 H73.001 [id number] JAMI CESPEDES MD [facility] on [address] [place] [address] 03/20/2024 14:54:31 03/20/2024 16:19:46 Preauricular cyst 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 Ear exam and audio are normal today. assuming the repeat CT is normal I discussed surgery. Given the severe infection of the pit I recommend excision. Audiogram was normal today. I discussed the risks, benefits and alternativ es to excision of preauricul ar pit/sinus tract including bleeding, infection, the surgical scar, recurrence and the remote risk of facial nerve injury. They understand and want to proceed. Abnormal a uditory perception 50305047 H93.299 Audiologic al evaluation results: Right ear: Normal hearing with excellent word recognitio n. Left ear: Normal hearing with excellent word recognitio n. Tympanomet ry: Right Ear:Type A Left Ear:Type A Health Concerns Section Related Observation LastModified by Organization Detai ls LastModified Time None Recorded Concern Status LastModified by Organization Details LastModified Time None Recorded Advance Directives Directive None Recorded Payers Insurance Date Sequence Insurance Name Policy Number Policy [place] Covered Member ID Hancock Member ID Guarantor Name 08/19/2024 1 [facility] Gary Dsouza [id number] Gary Dsouza Notes Date Note Type Note Provider Name and Address Organization Details Recorded Time 12/27/2023 text/html ROS as noted in the HPI 18 yo F with ear infection. Started with tinnitus Saturday 1 week ago, prescribed cephalexin for skin infection, then to ED shortly thereafter. Had allergic reaction to keflex. They put in a wick and ear drops (ciprodex) but had an allergic reaction. Then had bleeding. Needed another wick, she removed it. Took amoxicillin for 3 days. Was put on levaquin, no reaction this morning. She has tolerated prednisone. She was seen at the [place] ED last night and she had a CT scan showing soft tissue mass extending through the left middle ear and epitympanum suggestive of cholesteatoma, mucoperiosteal thickening involving the left external auditory canal, mild mucoperiosteal thinking left mastoid, normal right mastoid and middle ear. I do not have the images to review. August 2023 treated with cephalexin for cellulitis about the ears, but does not have frequent ear infections. Had trouble swallowing when the wick was in. OLIVIER CISNEROS MD [address] [place] [address], [address], [facility] - [facility] 12/27/2023 16:58:25 12/30/2023 text/html ROS as noted in the HPI 18-year-old female presents for left acute otitis externa follow up. She is currently treating with systemic Levaquin and Augmentin and topical TobraDex. She completed 5 days of Prednisone. She reports copious purulent drainage from left ear canal this weekend and went to [facility] ED for revaluation. 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 Today she reports improving otorrhea, otalgia, and swelling in and around the left ear. The wick placed at the hospital fell out yesterday and she discontinued drops. OLIVIER CISNEROS MD [address] [facility], [address], [facility] - [facility] 12/30/2023 17:13:21 01/17/2024 text/html ROS as noted in the HPI 18-year-old female presents for reevaluation of infected preauricular pit on the left side. Preauricular pit self evacuated several weeks ago. She has completed her otic drops and oral antibiotic. She feels much improved with return of normal hearing. No further drainage from the ear or surrounding tissue. GERTRUDE LOZANO MD [address] [facility], [address], [facility] - [facility] 01/17/2024 16:44:32 02/12/2024 text/html ROS as noted in the HPI 18 year old female with history of left preauricular pit that has previously been infected presents for evaluation of both ears. She reports both ears hurt and the hearing seems down on both sides. I can hear my voice in my head. She went to the ED two days ago and was given amoxicillin but feels the symptoms are worsening instead of improving. She has noted no otorrhea. She has been using Q-tips. There has been no swelling in the preauricular area and the ear is not tender to touch. AUGUST HAUSER MD [address] [facility], [address], [facility] - [facility] 02/14/2024 09:25:43 03/20/2024 text/html ROS as noted in the [facility] This past December she developed an external ear infection. She has a history of recurring ear infections on the left. She was been treated for myringitis and otitis externa. She has required wick placement before. She had swelling adjacent to her preauricular pit down to the tragus and on the posterior ear canal. She reports it started to drain through the skin. It never required I&D. She presents for surgical consultation. Had a CT at [place] when infected with concern for cholesteatoma. JAMI CESPEDES MD [address] [place] [address], [place], [address], [place] - [facility] 03/20/2024 16:43:48 OBGyn Episode No OBEpisode recorded.
--- OUTSIDE RECORDS SUMMARY | 2025-02-19 20:39 | XMS_ITS | Encounter Summary ---
Author Organization [facility] Address [address] [place] [address] Phone Care Team Providers Care Yard Clerk Name Role Phone Amy Galvan MD Primary Care Provider [phone] Encounter Details Date Type Department Care Team (Late st Contact Info) Description 09/14/2016 Documentation [facility] [address] [place], [place] [id number] Family Medicine, Physician [facility] [place] [id number] Social History Tobacco Use Types Packs/Day Years [...] on filedocumented in this encounter Care Teams Yard Clerk Relationship Specialty Start Date End Date Amy Galvan MD [address] [place] [address] PCP - General Pediatrics 12/11/22 03/31/24 documented as of this encounter
--- OUTSIDE RECORDS SUMMARY | 2025-02-19 20:39 | XMS_ITS | Data Portability ---
Author Organization [facility], [address] Address [address] [place] [address] Assessment No assessment recorded. Plan of Treatment Reminders Order Date Submit Date Provider Last Modified By Organization Details Last Modified Time Details Appointments None recorded. Lab rapid strep group A, throat 2022 023 [email or web address], [address] [facility], [place], [address], 18:04:25 streptococc us group A, culture, throat 2022 023 [place] [facility], [address] [place] [address], [place], [address], 16:06:55 Referral None recorded. Procedures None recorded. Surgeries None recorded. Imaging None recorded. Medication Orders dexamethaso ne sodium phosphate 10 mg/mL injection solution 2022 023 [email or web address] Not available 18:15:55 amoxicillin 400 mg/5 mL oral suspension 2022 023 [place] [id number], [address] [facility], [place], [address], 3 18:09:54 Patient TargetsNo targets recorded. Patient InstructionsNo [...] p A). (CLSI ) Not Available [facility] ([facility]) [address] [facility], [place], [address], 05/11/2022 16:06:55 05/09/19 23 05/09/2022 rapid strep group A, throa t Unknown Analyte Normal = Negati ve Not Available [address], [address], 05/09/2022 16:50:04 05/09/1905/09/2022 rapid strep group A, throa t Unknown Analyte negati ve Not Available [address] [place] [address], [address], 05/09/2022 16:50:04 Result Notes None recorded. Problems [...] [Percentile] Per age and sex Body weight Pain severity - 0-10 verbal numeric rating [Score] - Reported Oxygen saturation Heart rate Respiratory rate Body temperature Systolic And Diastolic Provider Name and Address Organization Details Last Updated DateTime 3 149.86 cm 25.9 kg/m2 84 % 78232.8 2 g 8 97 % 90 /min 16 /min 98.6 [degF] 127/81 mm[Hg] ЕКАТЕРИНА STORM [facility] 16:56:19 Social History Question Answer Notes LastModified by [employer] Details LastModified Time Tobacco Smoking Status Current Some Day Smoker Wraps marijuana in tobacco leaf ЕКАТЕРИНА tee [place] - [facility] 05/09/2022 16:49:36 Which Illicit Or Recreational Drugs Have You Used? Marijuana [email or web address] Information not available 05/09/2022 Have You Recently Traveled Abroad? No [email or web address] Information not available 05/09/2022 Sex: Unknown Functional Status Question Answer Note LastModified by [employer] Details LastModified Time Do you use any illicit or recreational drugs? Yes [email or web address] Information not available 05/09/2022 Do you or have you ever used any other forms of tobacco or nicotine? Yes [email or web address] Information not available 05/09/2022 What is your level of alcohol consumption? Occasional [email or web address] Information not available 05/09/2022 Do you or have you ever used e-cigarettes or vape? Current user of electronic cigarettes [email or web address] Information not available 05/09/2022 Mental Status None recorded. Family History Relationship Description Onset Age of this Age Resolved Age Notes LastModified by Organization Details LastModified Time Father No current problems or disability [email or web address] Not available 05/09 16:48:49 Mother No current problems or disability [email or web address] Not available 05/09 16:48:49 Medical History No medical history recorded. Gynecological HistoryNo gynecological history recorded. Obstetrics History GPAL:G 0 P 0 0 0 0 Past Encounters Encounter ID Performer Location Encounter Start Date Encounter Closed Date Diagnosis/Indication Diagnosis SNOMED-CT Code Diagnosis ICD10 Code Diagnosis IMO Codes Diagnosis Note [id number] [address] [place] [address] 05/08/2020 16:30:56 05/08/2020 17:11:00 [id number] WALT CANO MD [address] [facility] [place] [address] 05/09/2022 15:56:48 05/09/2022 18:12:52 Sore throat 920054732 J02.9 Acute tonsillitis 647029 08 J03.90 may take ibuprofen as directed [...] Member ID Hancock Member ID Guarantor Name 10/16/2023 1 [facility] [id number] Gary Dsouza [id number] Gary Dsouza Notes Date Note Type Note Provider Name and Address Organization Details Recorded Time 05/09/2022 text/html ROS as noted in the HPI Sore throat, swollen/red tonsils, white spots on throat, headache started Saturday. Covid tested at home today, was negative. Strep testing. Currently on Macrobid for UTI WALT CANO MD [address] [place], [address], [place] - [facility] 05/09/2022 18:23:13 OBGyn Episode No OBEpisode recorded.
--- OUTSIDE RECORDS SUMMARY | 2025-02-19 20:39 | XMS_ITS | Encounter Summary ---
Author Organization [facility] Address [address] [place] [address] Phone Care Team Providers Care Potato Pancake Frier Name Role Phone Amy Galvan MD Primary Care Provider [phone] Encounter Details Date Type Department Care Team (Late st Contact Info) Description 06/19/2016 Documentation [facility] [place] [address] [place] [address] Family Medicine, Physician [facility] [place] [phone] Social History Tobacco Use Types Packs/Day Years [...] on filedocumented in this encounter Care Teams Potato Pancake Frier Relationship Specialty Start Date End Date Amy Galvan MD [address] [place] [address] PCP - General Pediatrics 12/11/22 03/31/24 documented as of this encounter
--- OUTSIDE RECORDS SUMMARY | 2025-02-19 20:39 | XMS_ITS | Encounter Summary ---
Author Organization [facility] Address [address] [place] [address] Phone Care Team Providers Care Music Composer Name Role Phone Amy Galvan MD Primary Care Provider [phone] Encounter Details Date Type Department Care Team (Late st Contact Info) Description 06/14/[address] [facility] [place] [address] [place] [address] Family Medicine, Physician [facility] [place], [place] [phone] Social History Tobacco Use Types Packs/Day Years [...] on filedocumented in this encounter Care Teams Music Composer Relationship Specialty Start Date End Date Amy Galvan MD [address] [place] [address] PCP - General Pediatrics 12/11/22 03/31/24 documented as of this encounter
--- OUTSIDE RECORDS SUMMARY | 2025-02-19 20:39 | XMS_ITS | Encounter Summary ---
Author Organization [facility] Address [address] [place] [address] Phone Care Team Providers Care Master Technician Name Role Phone Amy Galvan MD Primary Care Provider [phone] Reason for Visit * Reason Comments Med Refill Encounter Details Date Type Department Care Team (Late st Contact Info) Description 12/08/2022 Refill [facility] [address] [place] [address] Amy Galvan MD [address] [place] [address] Encounter for initial prescription of injectable contraceptive [...] contraceptive documented in this encounter Care Teams Master Technician Relationship Specialty Start Date End Date Amy Galvan MD [address] [place] [address] PCP - General Pediatrics 12/11/22 03/31/24 documented as of this encounter
--- OUTSIDE RECORDS SUMMARY | 2025-02-19 20:39 | XMS_ITS | Encounter Summary ---
Author Organization [facility] Address [address] [place] [address] Phone Care Team Providers Care Superintendent Electric Power Name Role Phone Amy Galvan MD Primary Care Provider [phone] Encounter Details Date Type Department Care Team (Late st Contact Info) Description 11/08/2016 Conversion Encounter [facility] [address] [place] [address] Social History Tobacco Use Types Packs/Day Years [...] on filedocumented in this encounter Care Teams Superintendent Electric Power Relationship Specialty Start Date End Date Amy Galvan MD [address] [place] [address] PCP - General Pediatrics 12/11/22 03/31/24 documented as of this encounter
--- OUTSIDE RECORDS SUMMARY | 2025-02-19 20:39 | XMS_ITS | Encounter Summary ---
Author Organization [facility] Address [address] [place] [address] Phone Care Team Providers Care Body And Frame Man Name Role Phone Amy Galvan MD Primary Care Provider [phone] Encounter Details Date Type Department Care Team (Late st Contact Info) Description 06/19/2016 Documentation [facility] [place] Medicine [address] [place] [address] Family Medicine, Physician [facility] [place] [phone] Social History Tobacco Use Types Packs/Day Years [...] on filedocumented in this encounter Care Teams Body And Frame Man Relationship Specialty Start Date End Date Amy Galvan MD [address] [place] [address] PCP - General Pediatrics 12/11/22 03/31/24 documented as of this encounter
--- OUTSIDE RECORDS SUMMARY | 2025-02-19 20:39 | XMS_ITS | Encounter Summary ---
Author Organization [facility] Address [address] [place] [address] Phone Care Team Providers Care Manager Tax Name Role Phone Amy Galvan MD Primary Care Provider [phone] Encounter Details Date Type Department Care Team (Late st Contact Info) Description 09/14/2016 Documentation [facility] [place] [address] [place], [place] [id number] Family Medicine, Physician [facility] [place], [place] [phone] Social History Tobacco Use Types Packs/Day Years [...] on filedocumented in this encounter Care Teams Manager Tax Relationship Specialty Start Date End Date Amy Galvan MD [address] [place] [address] PCP - General Pediatrics 12/11/22 03/31/24 documented as of this encounter
--- OUTSIDE RECORDS SUMMARY | 2025-02-19 20:39 | XMS_ITS | Encounter Summary ---
Author Organization [facility] Address [address] [place] [address] Phone Care Team Providers Care Special Duty Nurse Name Role Phone Amy Galvan MD Primary Care Provider [phone] Encounter Details Date Type Department Care Team (Late st Contact Info) Description 08/05/2012 Documentation [facility] [place] Medicine [address] [place] [address] Family Medicine, Physician [facility] [place] [phone] Social History Tobacco Use Types Packs/Day Years [...] on filedocumented in this encounter Care Teams Special Duty Nurse Relationship Specialty Start Date End Date Amy Galvan MD [address] [place] [address] PCP - General Pediatrics 12/11/22 03/31/24 documented as of this encounter
--- OUTSIDE RECORDS SUMMARY | 2025-02-19 20:39 | XMS_ITS | Encounter Summary ---
Author Organization [facility] Address [address] [place] [address] Phone Care Team Providers Care Audograph Operator Name Role Phone Amy Galvan MD Primary Care Provider [phone] Encounter Details Date Type Department Care Team (Late st Contact Info) Description 09/14/2016 [place]ation [facility] [place] [address] [place], [place] [phone] Family Medicine, Physician On [facility] [place], [place] [phone] Social History Tobacco Use Types Packs/Day Years [...] on filedocumented in this encounter Care Teams Audograph Operator Relationship Specialty Start Date End Date Amy Galvan MD [address] [place] [address] PCP - General Pediatrics 12/11/22 03/31/24 documented as of this encounter
[2025-02-19 20:52] LABS: Alanine Aminotransferase 27 U/L (0-31); Albumin Level 4.8 g/dL (3.5-5.0); Alkaline Phosphatase 75 U/L (39-117); Anion Gap 12 (12-20); Aspartate Amino Transferase 24 U/L (5-31); Blood Urea Nitrogen 14 mg/dL (9-16); Calcium 9.2 mg/dL (8.4-10.2); Carbon Dioxide 23 mmol/L (22-29); Chloride 108 mmol/L (96-108); Creatinine Clr Calc Pharmacy 124.4; Estimated Glomerular Filt Rate > 60; Potassium 4.0 mmol/L (3.3-5.1); Sodium 139 mmol/L (135-145); Total Protein 7.7 g/dL (6.5-8.0)
[2025-02-19 21:41] VITALS: BP 117/69; PULSE 73; RESP 16; TEMP 36.8; O2SAT 98
[2025-02-19 21:44] VITALS: BP 117/69; PULSE 73; RESP 16; TEMP 36.8; O2SAT 98
== END 2025-02-19 21:45 | disposition home or self-care (01) ==
PROVIDERS: Emergency Provider Student in an Organized Health Care Education/Training Program
DX: N92.6 Irregular menstruation, unspecified (principal); R10.23 Pelvic and perineal pain bilateral; N92.0 Excessive and frequent menstruation with regular cycle
CPT/HCPCS: 36415; 80053; 84702; 85025; 86850; 86900; 86901; 99284

== ENCOUNTER 2025-03-17 17:45 | Emergency (ER) | payer OTHER, SELFPAY ==
--- NOTE | 2025-03-17 17:54 | ED.GENADULT ---
HPI - General Adult General Stated complaint: Flu Source: patient, RN notes reviewed and old records reviewed Mode of arrival: ambulatory Limitations: no limitations History of Present Illness ED Provider: Melody LEIVA narrative: Patient is a 19-year-old female presenting to the emergency department stating that her work is requiring a note because she left early due to flu symptoms. She states that her boyfriend was here 2 days ago and tested positive for influenza. She then purchased an [id number] flu test which was positive. She complains of fever. MD complaint: Influenza Related Data Previous Rx's ?Medication ?Instructions ?Recorded ciprofloxacin 0.3 %-dexamethasone 4 drp otic (ears) BID 7 days #7.5 12/21/23 0.1 % ear drops,suspension mL amoxicillin 875 mg-potassium 1 tab PO BID #20 tabs 12/22/23 clavulanate 125 mg tablet ibuprofen 100 mg/5 mL oral 600 mg (30 mL) PO Q6-8H PRN fever 12/22/23 suspension or pain #473 mL ketorolac 10 mg tablet 10 mg PO Q6H PRN pain 5 days #20 12/26/23 tabs levofloxacin 750 mg tablet 750 mg PO DAILY 10 days #10 tabs 12/26/23 prednisone 20 mg tablet 40 mg (2 x 20 mg) PO DAILY 5 days 12/26/23 #10 tabs amoxicillin 875 mg-potassium 1 tab PO Q12H 7 days #14 tabs 02/10/24 clavulanate 125 mg tablet naproxen 500 mg tablet 500 mg PO BID PRN pain 7 days #14 02/10/24 tabs benzonatate 100 mg capsule 100 mg PO TID PRN cough #12 caps 03/29/24 erythromycin 5 mg/gram (0.5 %) eye 0.5 inch ophthalmic (eye) BID #3.5 03/29/24 ointment grams cefuroxime axetil 500 mg tablet 500 mg PO BID #20 tabs 06/02/24 phenazopyridine 200 mg tablet 200 mg PO TID 6 doses #6 tabs 06/02/24 (Pyridium) tranexamic acid 650 mg tablet 650 mg PO TID 5 days #15 tabs 02/19/25 Allergies Allergy/AdvReac Type Severity Reaction Status Date / Time morphine Allergy Swelling Verified 03/17/25 17:56 Review of Systems Review of Systems: As per HPI Yes all other systems are reviewed and are negative Constitutional: Constitutional: Reports as per HPI [facility] Past Medical History Medical History Depression ADHD Social History Social History Alcohol intake: current Alcohol intake frequency: holidays/special occasions only Patient Tobacco Use Status: Never used Tobacco Substance Use Type: Marijuana Physical Exam ED Vital Signs: Vital signs have been reviewed and appear to be correct. Blood pressure normal. Heart rate normal. Respiratory rate normal. Temperature normal. Oxygen saturation normal. Const General: cooperative, healthy appearing and no acute distress Orientation/consciousness: oriented to person, oriented to place, oriented to time and patient oriented x3 Limitations: no limitations HENMT Head: Yes normocephalic and Yes atraumatic Ears: external ears normal General nose exam: Normal external nose present Face and sinus: Yes face symmetric Mouth: oropharynx normal and moist mucous membranes Throat: Yes uvula midline Eyes Pupils: Equal, round and reactive pupils present Neck Neck: Yes normal visual inspection and Yes supple Resp Effort & Inspection: normal respiratory effort and able to speak in complete sentences Auscultation: clear to auscultation bilaterally Cardio Rate: regular rate Rhythm: regular rhythm Heart sounds: S1 normal heart sound present and S2 normal heart sound present GI Palpation (GI): Soft to palpation and nontender Auscultation: normoactive bowel sounds General: Yes no CVA tenderness Back/Spine/Pelvis Back: no CVA tenderness Skin General skin exam: elasticity normal and turgor normal Neuro General: oriented to person, oriented to place, oriented to time, patient oriented x3, moves all extremities, no focal motor deficits and CN's II-XI intact bilaterally Cranial nerves: Yes Equal, round and reactive pupils present Cognition (Neuro): normal cognition Extrem General: Yes full ROM, Yes no pedal edema and Yes no calf tenderness Psych Mental Status: mental status grossly normal Affect: normal affect Thought process: Normal thought process present Medical Decision Making Medical Decision Making MDM Narrative: Patient is a 19-year-old female presenting to the emergency department stating that her work is requiring a note because she left early due to flu symptoms. On exam patient is awake, A+Ox3, VS WNL, afebrile, normal neurological exam without focal deficits, physical exam findings as above. Given reported symptoms and physical exam findings, initial differential includes but is not limited to influenza, other viral illness. Given that patient had a positive [id number] flu test, do not feel additional testing is indicated at this time. She is currently afebrile with normal vital signs. She is requesting only an excuse note for work, I am happy to provide this. Discussed that treatment is symptomatic, adequate rest, adequate fluid intake, alternating Tylenol and ibuprofen as needed. Return precautions discussed. Patient verbalized understanding of and agreement with plan. Differential Diagnosis Differential Diagnoses: The differential diagnosis associated with the presentation includes As per [facility] External Record Review External record reviewed: Inpatient record, Office record and Outpatient record Discharge Plan Discharge Clinical Impression: Influenza Patient Disposition: Home, Self-Care Instructions: Influenza (DC), Flu Shot (Vaccine) for Adults (ED) Additional Instructions: You were evaluated in the emergency department today for fever. Your at home flu test was positive. You should isolate at home for another 4 days and continue to wear mask while symptomatic after that. Your symptoms should resolve over time with rest and fluids. You can take 650 mg Tylenol or 600 mg ibuprofen every 6 hours as needed for fever or pain. Please follow-up with your primary care provider for any ongoing symptoms. Return to the emergency department if you develop worsening pain, fever not controlled with Tylenol and ibuprofen, chest pain, dizziness or lightheadedness, or any other concerning symptoms. Prescriptions: No Action amoxicillin-pot clavulanate 875-125 mg tablet 1 tab PO BID Qty: 20 0RF ketorolac 10 mg tablet 10 mg PO Q6H PRN (Reason: pain) 5 Days Qty: 20 0RF Rx Instructions: Patient received Toradol 30 IM in the ED prednisone 20 mg tablet 40 mg PO DAILY 5 Days Qty: 10 0RF levofloxacin 750 mg tablet 750 mg PO DAILY 10 Days Qty: 10 0RF amoxicillin-pot clavulanate 875-125 mg tablet 1 tab PO Q12H 7 Days Qty: 14 0RF naproxen 500 mg tablet 500 mg PO BID PRN (Reason: pain) 7 Days Qty: 14 0RF benzonatate 100 mg capsule 100 mg PO TID PRN (Reason: cough) Qty: 12 0RF erythromycin 5 mg/gram (0.5 %) ointment 0.5 inch ophthalmic (eye) BID Qty: 3.5 0RF ciprofloxacin-dexamethasone 0.3-0.1 % drops,suspension 4 drp otic (ears) BID 7 Days Qty: 7.5 0RF Rx Instructions: LEFT ear ibuprofen 100 mg/5 mL suspension 600 mg PO Q6-8H PRN (Reason: fever or pain) Qty: 473 0RF cefuroxime axetil 500 mg tablet 500 mg PO BID Qty: 20 0RF phenazopyridine [Pyridium] 200 mg tablet 200 mg PO TID Qty: 6 0RF tranexamic acid 650 mg tablet 650 mg PO TID 5 Days Qty: 15 0RF Stand Alone Forms: Work/School Release Print Language: Bulgarian
[2025-03-17 17:55] VITALS: BP 111/67; PULSE 89; RESP 16; TEMP 36.6; O2SAT 97; BMI 24.9
--- OUTSIDE RECORDS SUMMARY | 2025-03-17 18:08 | XMS_ITS | Encounter Summary ---
Author Organization [facility] Address [address] [place] [address] Phone Care Team Providers Care Behaviour Support Teacher Name Role Phone Amy Galvan MD Primary Care Provider [phone] Encounter Details Date Type Department Care Team (Late st Contact Info) Description 08/05/2012 Documentation [facility] [place] [address] [place] [address] Family Medicine, Physician [facility] [place], [place] [phone] Social History Tobacco Use Types Packs/Day Years [...] on filedocumented in this encounter Care Teams Behaviour Support Teacher Relationship Specialty Start Date End Date Amy Galvan MD [address] [place] [address] PCP - General Pediatrics 12/11/22 03/31/24 documented as of this encounter
--- OUTSIDE RECORDS SUMMARY | 2025-03-17 18:08 | XMS_ITS | Encounter Summary ---
Author Organization [facility] Address [address] [place] [address] Phone Care Team Providers Care Batter Mixer Name Role Phone Amy Galvan MD Primary Care Provider [phone] Reason for Visit * Reason Comments Med Refill Encounter Details Date Type Department Care Team (Late st Contact Info) Description 12/08/2022 Refill [facility] [address] [place] [address] Amy Galvan MD [address] [place] [address] Encounter for initial prescription of injectable contraceptive [...] contraceptive documented in this encounter Care Teams Batter Mixer Relationship Specialty Start Date End Date Amy Galvan MD [address] [place] [address] PCP - General Pediatrics 12/11/22 03/31/24 documented as of this encounter
--- OUTSIDE RECORDS SUMMARY | 2025-03-17 18:08 | XMS_ITS | Encounter Summary ---
Author Organization [facility] Address [address] [place] [address] Phone Care Team Providers Care Truck Body Repairer Name Role Phone Amy Galvan MD Primary Care Provider [phone] Encounter Details Date Type Department Care Team (Late st Contact Info) Description 09/14/2016 Documentation [facility] [place] Family Medicine [address] [place], [place] [phone] Family Medicine, Physician [facility] [place], [place] [phone] Social History Tobacco Use Types Packs/Day Years [...] on filedocumented in this encounter Care Teams Truck Body Repairer Relationship Specialty Start Date End Date Amy Galvan MD [address] [place] [address] PCP - General Pediatrics 12/11/22 03/31/24 documented as of this encounter
--- OUTSIDE RECORDS SUMMARY | 2025-03-17 18:08 | XMS_ITS | Encounter Summary ---
Author Organization [facility] Address [address] [place] [address] Phone Care Team Providers Care Motorcycle Mechanic Apprentice Name Role Phone Amy Galvan MD Primary Care Provider [phone] Encounter Details Date Type Department Care Team (Late st Contact Info) Description 11/08/2016 Conversion Encounter [facility] [address] [place] [address] Social History Tobacco Use Types Packs/Day Years [...] on filedocumented in this encounter Care Teams Motorcycle Mechanic Apprentice Relationship Specialty Start Date End Date Amy Galvan MD [address] [place] [address] PCP - General Pediatrics 12/11/22 03/31/24 documented as of this encounter
--- OUTSIDE RECORDS SUMMARY | 2025-03-17 18:08 | XMS_ITS | Clinical Summary ---
Author Organization [facility] Address [address] [place] [address] Phone Care Team Providers Care Diesel Engine Engineer Name Role Phone Unavailable Primary Care Provider [...] get on a list- would not try [facility] or [facility] as she is 18yo Assessment & Plan [...] think about it She does have pending [facility] appointment in a few months She is using condoms regularly Assessment & Plan (04/01/2023 4:35 PM EST): Continue with q 13 weeks depoprovera - next due in late April Assessment & Plan (10/01/2022 4:47 PM EDT): Restart 10/01/22 depoprovera Anxiety disorder 12/30/2019 Dysmenorrhea in adolescent 08/19/2018 Overview (12/25/2019): 12/2019: has a lot of irregular periods, but never seen by [facility] for this. Never had any management for menses, irregular cycles, has had RLQ pain after menses every other month. Was dx with a cyst on her R ovary, never seen by [facility] or for any f/u (this was identified during an ED visit 10/22/2019). 2019 Would like to go on Nexplanon, does not feel OCPs would work well for her I don't do well taking medication every day and doesn't like needles or shots so Depo is not a good match either. Prefers a LARC so referral to [facility]/Midwives made, information given at PE 07/2018 and mom and pt to make appointment for this. Assessment & Plan (12/25/2019 6:53 PM EDT): Discussed options for management of irregular menses, and given hx of cyst is reasonable to establish with a [facility] if desired especially since she was considering nexplanon. Reviewed more worrisome changes to watch for and when she should be seen back in the office PRN. Assessment & Plan (08/19/2018 11:05 PM EDT): Discussed menses management with Nexplanon through [facility] as well as use of ibuprofen even a day before menses expected to try to manage cramping/keep to a minimum. Discussed option of Rx Naproxyn, but declined today, can follow up with [facility] re: other management options. Not SA. Return [...] school with some concern this school year ([id number]) re: passing all classes, may need to do summer school. Per mom and pt this is not uncommon. For [id number] school year mom has no concerns but [...] be on medication for ADHD. F/u with [facility] if this changes or with additional concerns. [...] pt has therapy bridge supports to more long term acute care registered nurse therapist again. Assessment & Plan (08/14/2018 9:28 [...] Completed 12/25/2019, 015 Procedures * Due to [place] [email or web address] law, this organization might not be sharing sensitive test results. Procedure Name Priority Date/Time Associated Diagnosis Comments CHLAMYDIA AND GONORRHEA, AMPLIFIED Routine 08/27/2023 11:29 AM EDT Special screening examination for chlamydial disease from Last 3 Months or Most Recently Relevant to Health Maintenance Results * Due to [place] [email or web address] law, this organization might not be sharing sensitive test results. * Chlamydia and Gonorrhoea, Amplified (08/27/2023 11:29 AM EDT) C trach GRIFFIN Negative Negative [facility] N gonorrhoeae GRIFFIN Negative Negative [facility] Urine (Urine) 08/27/2023 11: 29 AM EDT 08/27/2023 Comment:UR Narrative [facility] - 08/30/2023 9:08 AM EDT Performed at: - [facility] [address], [address], [place], [place] [id number] Entry Level Chemist: Abdullahi Martinez MD, Phone: [phone] us Amy Galvan MD LAB MICROBIOLOGY - GENERAL ORD ERABLES Final Result [facility] [address] [place] [address] from Last 3 Months or Most Recently Relevant to Health Maintenance
--- OUTSIDE RECORDS SUMMARY | 2025-03-17 18:08 | XMS_ITS | Encounter Summary ---
Author Organization [facility] Address [address] [place] [address] Phone Care Team Providers Care Railroad Track Repair Supervisor Name Role Phone Amy Galvan MD Primary Care Provider [phone] Encounter Details Date Type Department Care Team (Late st Contact Info) Description 09/14/2016 Documentation [facility] [place] [address] [place], [place] [id number] Family Medicine, Physician [facility] [place] [phone] Social History Tobacco Use Types Packs/Day Years [...] on filedocumented in this encounter Care Teams Railroad Track Repair Supervisor Relationship Specialty Start Date End Date Amy Galvan MD [address] [place] [address] PCP - General Pediatrics 12/11/22 03/31/24 documented as of this encounter
--- OUTSIDE RECORDS SUMMARY | 2025-03-17 18:08 | XMS_ITS | Encounter Summary ---
Author Organization [facility] Address [address] [place] [address] Phone Care Team Providers Care Rounder Hand Name Role Phone Amy Galvan MD Primary Care Provider [phone] Encounter Details Date Type Department Care Team (Late st Contact Info) Description 09/14/2016 Documentation [facility] [place] [address] [place], [place] [phone] Family Medicine, Physician [facility] [place] [phone] Social History Tobacco Use Types Packs/Day Years [...] on filedocumented in this encounter Care Teams Rounder Hand Relationship Specialty Start Date End Date Amy Galvan MD [address] [place] [address] PCP - General Pediatrics 12/11/22 03/31/24 documented as of this encounter
--- OUTSIDE RECORDS SUMMARY | 2025-03-17 18:08 | XMS_ITS | Encounter Summary ---
Author Organization [facility] Address [address] [place] [address] Phone Care Team Providers Care Numerical Control Machine Machinist Name Role Phone Amy Galvan MD Primary Care Provider [phone] Encounter Details Date Type Department Care Team (Late st Contact Info) Description 06/19/2016 Documentation [facility] [place] [address] [place] [address] Family Medicine, Physician [facility] [place], [place] [phone] Social History Tobacco Use Types Packs/Day Years [...] on filedocumented in this encounter Care Teams Numerical Control Machine Machinist Relationship Specialty Start Date End Date Amy Galvan MD [address] [place] [address] PCP - General Pediatrics 12/11/22 03/31/24 documented as of this encounter
--- OUTSIDE RECORDS SUMMARY | 2025-03-17 18:08 | XMS_ITS | Data Portability ---
Author Organization [facility] - [facility], [address] Address [address] [place] [address] Assessment No assessment recorded. Plan of Treatment Reminders Order Date Submit Date Provider Last Modified By Organization Details Last Modified Time Details Appointments None recorded. Lab rapid strep group A, throat 2022 023 [email or web address] 247 _dar [facility], [address] [facility], [place], [address], 18:04:25 streptococc us group A, culture, throat 2022 023 [place] [facility], [address] [place] [address], [place], [address], 16:06:55 Referral None recorded. Procedures None recorded. Surgeries None recorded. Imaging None recorded. Medication Orders dexamethaso ne sodium phosphate 10 mg/mL injection solution 2022 023 [email or web address] Not available 18:15:55 amoxicillin 400 mg/5 mL oral suspension 2022 023 [place] [id number], [address] [place], [address], 3 18:09:54 Patient TargetsNo targets recorded. Patient [...] p A). (CLSI ) Not Available [facility] ([facility]) [address] [facility], [place], [address], 05/11/2022 16:06:55 05/09/19 23 05/09/2022 rapid strep group A, throa t Unknown Analyte Normal = Negati ve Not Available [address], [address], 05/09/2022 16:50:04 05/09/1905/09/2022 rapid strep group A, throa t Unknown Analyte negati ve Not Available [address] [place] [address], [address], 05/09/2022 16:50:04 Result Notes None recorded. Problems [...] 3 149.86 cm 25.9 kg/m2 84 % 51361.8 2 g 8 97 % 90 /min 16 /min 98.6 [degF] 127/81 mm[Hg] ЕКАТЕРИНА STORM [facility] 16:56:19 Social History Question Answer Notes LastModified by [email or web address] ([employer]) Details LastModified Time Tobacco Smoking Status Current Some Day Smoker Wraps marijuana in tobacco leaf ЕКАТЕРИНА tee [place] - [facility] 05/09/2022 16:49:36 Which Illicit Or Recreational Drugs Have You Used? Marijuana Information not available 05/09/2022 Have You Recently Traveled Abroad? No [email or web address] Information not available 05/09/2022 Sex: Unknown Functional Status Question Answer Note LastModified by [employer] ([employer]) Details LastModified Time Do you use any illicit or recreational drugs? Yes [email or web address] Information not available 05/09/2022 Do you or have you ever used any other forms of tobacco or nicotine? Yes [email or web address] Information not available 05/09/2022 What is your level of alcohol consumption? Occasional Information not available 05/09/2022 Do you or have you ever used e-cigarettes or vape? Current user of electronic cigarettes [email or web address] Information not available 05/09/2022 Mental Status None recorded. Family History Relationship Description Onset Age of this Age Resolved Age Notes LastModified by Organization Details LastModified Time Father No current problems or disability Not available 05/09 16:48:49 Mother No current problems or disability [email or web address] Not available 05/09 16:48:49 Medical History No medical history recorded. Gynecological HistoryNo gynecological history recorded. Obstetrics History GPAL:G 0 P 0 0 0 0 Past Encounters Encounter ID Performer Location Encounter Start Date Encounter Closed Date Diagnosis/Indication Diagnosis SNOMED-CT Code Diagnosis ICD10 Code Diagnosis IMO Codes Diagnosis Note [id number] [address]et [address] [place] [address] 05/08/2020 16:30:56 05/08/2020 17:11:00 [id number] WALT CANO MD [address] [facility] [place] [address] 05/09/2022 15:56:48 05/09/2022 18:12:52 Sore throat 658814930 J02.9 Acute tonsillitis 710544 08 J03.90 may take ibuprofen as directed [...] Hancock Member ID Guarantor Name 10/16/2023 1 [facility] [id number] Gary Dsouza [id number] Gary Dsouza Notes Date Note Type Note Provider Name and Address Organization Details Recorded Time 05/09/2022 text/html ROS as noted in the HPI Sore throat, swollen/red tonsils, white spots on throat, headache started Saturday. Covid tested at home today, was negative. Strep testing. Currently on Macrobid for UTI WALT CANO MD [address] [place], [address], [place] - [facility] 05/09/2022 18:23:13 OBGyn Episode No OBEpisode recorded.
--- OUTSIDE RECORDS SUMMARY | 2025-03-17 18:08 | XMS_ITS | Data Portability ---
Author Organization [place] - [facility], Allergy Address [address] [address] Care Team Providers Care Print Shop Stenographer Name Role Phone NETTE GRANDA Primary Care Provider [phone] Assessment Encounter Date Assessment Date Assessment LastModified [...] of recurrent infection. All questions were answered. [email or web address] Not available 01/17/2024 16:21:37 02/12/2024 02/12/2024 Patient [...] Imaging CT, temporal bone, w/o contrast 2023 [facility] [place], [address] [facility], [facility] [address], [place], [address], 4 10:07:34 Medication Orders ciprofloxa jerad 0.3 %-dexameth asone 0.1 % ear drops,susp ension 2023 [id number], [address] [facility], [place], [address], 4 15:10:10 TobraDex 0.3 %-0.1 % eye drops,susp ension 2023 024 [id number], [address] [facility] [place], [address], 13:07:30 Patient TargetsNo targets recorded. Patient InstructionsNo [...] Organization Details Recorded Time Acute otitis externa 72685129 Active 2023 OLIVIER CISNEROS MD [address] [facility],[place] [address], [place], [address], [facility] - [facility] 15:40:19 Abscess of preauricula r sinus 814460336 Active 2023 NATALY MACK PA-C [address] [address], [place], [address], [facility] - [facility] 14:52:47 Bilateral disorder of Eustachian tubes 4830818197501 107 Active 2023 KARLA VERDUZCO [address] [facility] [address] [facility], [place], [address], [facility] - [facility] [place] 4 13:29:15 Acute myringitis of right ear 4376573099626 108 Active 2023 Tomer tee [place] - [facility] [place] 4 14:50:17 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 2023 JAMI Hunter MD [address] [place] [address], [place], [address], [facility] - [facility] 4 15:31:47 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 Procedures Surgical History Date Name Laterality Status Provider Name and Address Organization Details Recorded Time 03/20/20 24 Comp Audio with Tymps - 01196 & 94539 completed ILDA ARZATE, [facility] [address] [address], [place], [address], [facility] 03/20/2024 15:43:52 02/12/20 24 Tympanometry - 82369 completed KELSI JARAMILLO, [facility] [address] [address], [place], [address], [facility] 02/12/2024 13:28:06 Imaging Results None recorded. Procedure Notes None recorded. Medical Equipment None Reported. Allergies Allergen ID Allergen Name Allergen Category Reaction Reaction Severity Criticality Documentation Date Start Date Code Code System Note Provider Name and Address Organization Details Recorded Time 264426 ciproflox acin medicatio n Not available Not available Not available 12/27/2023 2551 RxNorm Fidelia tee [facility] 4 15:16:00 322246 Keflex medicatio n Not available Not available Not available 12/27/2023 07649 7 RxNorm Fidelia tee [facility] 4 15:16:08 Medications Name Sig Start Date [...] 12/27/2023 149.86 cm 94 % 31.1 kg/m2 02863.22 g Fidelia Monroy [facility] 12/27/2023 15:15:42 Date Recorded Body height Body mass index (BMI) Body mass index (BMI) [Percentile] Per age and sex Body weight Provider Name and Address Organization Details Last Updated DateTime 12/30/2023 149.86 cm 31.1 kg/m2 94 % 79221.22 g Hima Barrera [facility] 12/30/2023 13:35:32 Date Recorded Body height Body mass index (BMI) Body mass index (BMI) [Percentile] Per age and sex Body weight Provider Name and Address Organization Details Last Updated DateTime 01/17/2024 149.86 cm 31.1 kg/m2 94 % 65137.22 g Rebecca Rootos [facility] 01/17/2024 15:57:49 Date Recorded Body height Body mass index (BMI) Body mass index (BMI) [Percentile] Per age and sex Body weight Provider Name and Address Organization Details Last Updated DateTime 02/12/2024 149.86 cm 32.3 kg/m2 95 % 90833.78 g Fidelia Hodgesusu [facility] 02/12/2024 13:07:05 Date Recorded Body height Body mass index (BMI) [Percentile] Per age and sex Body mass index (BMI) Body weight Provider Name and Address Organization Details Last Updated DateTime 03/20/2024 149.86 cm 95 % 32.3 kg/m2 45052.78 g Miracle Chopra [facility] 03/20/2024 15:09:40 Social History None recorded. Functional [...] Diagnosis Note OLIVIER CISNEROS MD [facility] [address] [address] 12/27/2023 14:57:51 12/27/2023 15:55:10 Acute otitis externa 51638053 H60.509 18-year-ol d female presents today for [...] ear exam. NATALY MACK PA-C [facility] [address] [address] 12/30/2023 13:30:01 12/30/2023 14:16:36 Acute otitis externa 02198432 H60.509 Abscess of preauricular sinus 093976985 H60.02 [id number] NATALY MACK PA-C [facility] [address] [address] 01/17/2024 15:49:39 01/17/2024 16:08:37 Abscess of preauricular sinus 395429640 H60.02 Acute otitis externa 302 [address]809 H60.509 [id number] TOMER WALL PA-C [facility] [address] [address] 02/12/2024 13:00:44 02/12/2024 13:37:25 Bilateral disorder of Eustachian tubes 9431854414 375599 H69.93 Tympanomet ry: Right ear: Type CLeft ear: Type A, rounded Acute myri ngitis of right ear 2610737543 410449 H73.001 [id number] JAMI CESPEDES MD [facility] on [address] [place] [address] 03/20/2024 14:54:31 03/20/2024 16:19:46 Preauricular cyst 81399663 Q18.[address] to exclude [...] want to proceed. Abnormal a uditory perception 85155215 H93.299 Audiologic al evaluation results: Right ear: [...] Hancock Member ID Guarantor Name 08/19/2024 1 [facility] Gary Dsouza [id number] Gary Dsouza Notes Date Note Type [...] tolerated prednisone. She was seen at the [place] ED last night and she had a [...] the wick was in. OLIVIER CISNEROS MD [address] [place] [address], [address], [facility] - [facility] 12/27/2023 16:58:25 12/30/2023 text/html ROS as noted in the HPI 18-year-old female presents for left acute otitis externa follow up. She is currently treating with systemic Levaquin and Augmentin and topical TobraDex. She completed 5 days of Prednisone. She reports copious purulent drainage from left ear canal this weekend and went to [facility] ED for revaluation. 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 Today she reports improving otorrhea, otalgia, and swelling in and around the left ear. The wick placed at the hospital fell out yesterday and she discontinued drops. 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 Preauricular pit self evacuated several weeks ago. She has completed her otic drops and oral antibiotic. She feels much improved with return of normal hearing. No further drainage from the ear or surrounding tissue. GERTRUDE LOZANO MD [address] [facility],[address], [address], [facility] - [facility] 01/17/2024 16:44:32 02/12/2024 text/html ROS as noted [...] tender to touch. AUGUST HAUSER MD [address] [facility],[address], [address], [facility] - [facility] 02/14/2024 09:25:43 03/20/2024 text/html ROS as noted in the [facility] This past December she developed an external [...] for surgical consultation. Had a CT at [place] when infected with concern for cholesteatoma. JAMI CESPEDES MD [address] [place] [address], [place], [address], [place] - [facility] 03/20/2024 16:43:48 OBGyn Episode No OBEpisode recorded.
--- OUTSIDE RECORDS SUMMARY | 2025-03-17 18:08 | XMS_ITS | Encounter Summary ---
Author Organization [facility] Address [address] [place] [address] Phone Care Team Providers Care Laborer General Name Role Phone Amy Galvan MD Primary Care Provider [phone] Encounter Details Date Type Department Care Team (Late st Contact Info) Description 06/19/2016 Documentation [facility] Family Medicine [address] [place] [address] Family Medicine, Physician formerly [facility] [place] [phone] Social History Tobacco Use Types Packs/Day Years [...] on filedocumented in this encounter Care Teams Laborer General Relationship Specialty Start Date End Date Amy Galvan MD [address] [place] [address] PCP - General Pediatrics 12/11/22 03/31/24 documented as of this encounter
--- OUTSIDE RECORDS SUMMARY | 2025-03-17 18:08 | XMS_ITS | Encounter Summary ---
Author Organization [facility] Address [address] [place] [address] Phone Care Team Providers Care Metropolitan Editor Name Role Phone Amy Galvan MD Primary Care Provider [phone] Encounter Details Date Type Department Care Team (Late st Contact Info) Description 06/14/2011 Documentation [facility] Family Medicine [address] [place] [address] Family Medicine, Physician Formerly [facility] [place] [phone] Social History Tobacco Use Types Packs/Day Years [...] on filedocumented in this encounter Care Teams Metropolitan Editor Relationship Specialty Start Date End Date Amy Galvan MD [address] [place] [address] PCP - General Pediatrics 12/11/22 03/31/24 documented as of this encounter
--- OUTSIDE RECORDS SUMMARY | 2025-03-17 18:08 | XMS_ITS | Encounter Summary ---
Author Organization [facility] Address [address] [place] [address] Phone Care Team Providers Care Aircraft Time Clerk Name Role Phone Amy Galvan MD Primary Care Provider [phone] Encounter Details Date Type Department Care Team (Late st Contact Info) Description 09/14/2016 Documentation [facility] Family Medicine [address] [place], [place] [phone] Family Medicine, Physician [facility] [place], [place] [phone] Social History Tobacco Use Types Packs/Day Years [...] on filedocumented in this encounter Care Teams Aircraft Time Clerk Relationship Specialty Start Date End Date Amy Galvan MD [address] [place] [address] PCP - General Pediatrics 12/11/22 03/31/24 documented as of this encounter
--- OUTSIDE RECORDS SUMMARY | 2025-03-17 18:08 | XMS_ITS | Encounter Summary ---
Author Organization [facility] Address [address] [place] [address] Phone Care Team Providers Care Processing Manager Name Role Phone Amy Galvan MD Primary Care Provider [phone] Encounter Details Date Type Department Care Team (Late st Contact Info) Description 06/19/2016 Documentation [facility] [place] Medicine [address] [place] [address] Family Medicine, Physician [facility] [place] [phone] Social History Tobacco Use Types Packs/Day Years [...] on filedocumented in this encounter Care Teams Processing Manager Relationship Specialty Start Date End Date Amy Galvan MD [address] [place] [address] PCP - General Pediatrics 12/11/22 03/31/24 documented as of this encounter
--- OUTSIDE RECORDS SUMMARY | 2025-03-17 18:08 | XMS_ITS | Encounter Summary ---
Author Organization [facility] Address [address] [place] [address] Phone Care Team Providers Care Electric Organ Assembler Name Role Phone Amy Galvan MD Primary Care Provider [phone] Encounter Details Date Type Department Care Team (Late st Contact Info) Description 06/19/2016 Documentation [facility] Family Medicine [address] [place] [address] Family Medicine, Physician [facility] [place], [place] [phone] Social History Tobacco Use Types Packs/Day Years [...] on filedocumented in this encounter Care Teams Electric Organ Assembler Relationship Specialty Start Date End Date Amy Galvan MD [address] [place] [address] PCP - General Pediatrics 12/11/22 03/31/24 documented as of this encounter
--- OUTSIDE RECORDS SUMMARY | 2025-03-17 18:08 | XMS_ITS | Encounter Summary ---
Author Organization [facility] Address [address] [place] [address] Phone Care Team Providers Care Dramatic Teacher Name Role Phone Amy Galvan MD Primary Care Provider [phone] Encounter Details Date Type Department Care Team (Late st Contact Info) Description 06/19/2016 Documentation [facility] [place] [address] [place] [address] Family Medicine, Physician [facility] [place], [place] [phone] Social History Tobacco Use Types Packs/Day Years [...] on filedocumented in this encounter Care Teams Dramatic Teacher Relationship Specialty Start Date End Date Amy Galvan MD [address] [place] [address] PCP - General Pediatrics 12/11/22 03/31/24 documented as of this encounter
--- OUTSIDE RECORDS SUMMARY | 2025-03-17 18:08 | XMS_ITS | Clinical Summary ---
Author Organization [facility] Address [address] [place] [address] Phone Care Team Providers Care Filer Repairer Name Role Phone Physician, No Pcp Primary [...] on file Sexual Orientation Not on file Last Filed Vital Signs Vital Sign Reading [...] patient's age to complete this topic Insurance [facility] Care Teams Filer Repairer Relationship Specialty Start Date End Date Physician, No Pcp PCP - General 11/11/24
[2025-03-17 18:20] VITALS: BP 111/67; PULSE 89; RESP 16; TEMP 36.6; O2SAT 97
== END 2025-03-17 18:22 | disposition home or self-care (01) ==
PROVIDERS: Emergency Provider Emergency Medicine
DX: J10.1 Influenza due to other identified influenza virus with other respiratory manifestations (principal)
CPT/HCPCS: 99282